=== PATIENT | male | born 1955 | race Caucasian/White ===

== ENCOUNTER 2018-08-30 12:29 | Inpatient (IN) | payer BC | END 2018-09-01 15:59 | disposition home or self-care (01) | LOC: ER 12:29 → ED HOLD 15:59 → SUR 3N 17:20 ==

== ENCOUNTER 2019-04-09 08:59 | Inpatient (IN) | payer BC ==
[~2019-04-09] VITALS: Ht 177.8 cm; Wt 165.9 kg
[~2019-04-09 08:59] MED LIST: ALBU18HF2 IH; BUDE10.22 INH; TAMS0.4C32 PO
--- NOTE | 2019-04-09 09:25 | NUR ---
Dr. Cr at bedside.
[2019-04-09 11:00] LABS: BASOPHILS % (AUTO) 0.3 % (0-1); EOSINOPHILS # (AUTO) 0.4 X10'3 (0-0.9); EOSINOPHILS % (AUTO) 4.5 % (0-6); HEMATOCRIT 34.5 % (42.0-52.0); HEMOGLOBIN 11.9 g/dl (14.0-17.9); LYMPHOCYTES # (AUTO) 1.5 X10'3 (1.1-4.8); LYMPHOCYTES % (AUTO) 16.3 % (21-51); MEAN CORPUSCULAR HEMOGLOBIN 34.4 PG (27.0-31.0); MEAN CORPUSCULAR HGB CONC 34.4 g/dL (33.0-36.5); MEAN CORPUSCULAR VOLUME 99.9 FL (78-98); MEAN PLATELET VOLUME 6.9 FL (7.4-10.4); MONOCYTES # (AUTO) 0.6 X10'3 (0-0.9); MONOCYTES % (AUTO) 7.1 % (2-12); NEUTROPHILS # (AUTO) 6.5 X10'3 (1.8-7.7); NEUTROPHILS % (AUTO) 71.8 % (42-75); PLATELET COUNT 209 X10'3 (140-440); RED BLOOD COUNT 3.46 X10'6 (4.70-6.10); RED CELL DISTRIBUTION WIDTH 14.4 % (11.5-14.5)
[2019-04-09 11:19] LABS: ANION GAP 7 (8-16); BLOOD UREA NITROGEN 26 MG/DL (7-18); BUN/CREATININE RATIO 9.1 (5.4-32.0); CALCIUM 8.2 MG/DL (8.5-10.1); CHLORIDE 109 MMOL/L (99-107); CREATININE 2.85 MG/DL (0.60-1.10); GLUCOSE 83 MG/DL (70-104); POTASSIUM 4.8 MMOL/L (3.5-5.1); SODIUM 144 MMOL/L (135-145); TOTAL CARBON DIOXIDE 27.6 MMOL/L (24-32); eGFR 22 ML/MIN
[2019-04-09 11:20] LABS: ALANINE AMINOTRANSFERASE 25 U/L (12-78); ALBUMIN 3.1 G/DL (3.4-5.0); ALBUMIN/GLOBULIN RATIO 0.7 (1.1-1.5); ALKALINE PHOSPHATASE 83 IU/L (46-116); ASPARTATE AMINO TRANSFERASE 17 U/L (10-37); BILIRUBIN,TOTAL 0.4 MG/DL (0.1-1.0); TOTAL PROTEIN 7.6 G/DL (6.4-8.2)
[2019-04-09 11:26] LABS: MAGNESIUM 2.1 MG/DL (1.5-2.4)
[2019-04-09] MEDS ORDERED: methylPREDNISolone sod succ 125mg/2ml vial IV ONE (11:50)
[2019-04-09] MEDS ORDERED: ipratropium/albuterol 3ml nebule NEB ONE (11:50)
[2019-04-09] MEDS ORDERED: normal saline 1000ML IV soln IVB ONE (11:50)
--- NOTE | 2019-04-09 12:02 | NUR ---
Dr. Iverson at bedside.
[2019-04-09] MEDS ORDERED: magnesium 2GM in 50ml NS 50 ML IV PRN (12:20)
[2019-04-09] MEDS ORDERED: potassium CL 10mEq/100ml bag 100 ML IV PRN ×2 (12:20)
[2019-04-09] MEDS ORDERED: HYDROcodone/acetaminophen 5mg/325mg tablet PO PRN (12:20)
[2019-04-09] MEDS ORDERED: ondansetron/PF 4mg/2ml inj IV PRN (12:20)
[2019-04-09] MEDS ORDERED: HYDROcodone/acetaminophen 10/325mg tab PO PRN (12:20)
[2019-04-09] MEDS ORDERED: acetaminophen 325mg tablet PO PRN ×2 (12:20)
[2019-04-09] MEDS ORDERED: LORazepam 2 mg/ml vial IV PRN (12:20)
[2019-04-09] MEDS ORDERED: magnesium 4gm in 100ml NS 100 ML IV PRN (12:20)
[2019-04-09] MEDS ORDERED: morphine 2 MG/ML inj. syringe IV PRN ×2 (12:20)
[2019-04-09] MEDS ORDERED: potassium Cl 20 mEq SR tablet PO PRN ×2 (12:20)
[2019-04-09] MEDS ORDERED: LORazepam 1 MG tablet PO PRN (12:20)
[2019-04-09] MEDS ORDERED: magnesium Cl slow-release 64mg tablet PO PRN (12:20)
[2019-04-09] MEDS ORDERED: BUDE10.2 PO (12:29)
[2019-04-09] MEDS ORDERED: ALBU17AE26 PO (12:29)
--- NOTE | 2019-04-09 12:50 | NUR ---
ECHO AT BEDSIDE
[2019-04-09] MEDS: guaiFENesin/DM 10ml UD oral syrup PO SCH ×2 (13:55→20:08)
[2019-04-09] MEDS: albuterol 2.5 MG/3 ML nebule NEB SCH ×2 (14:00→20:00)
[2019-04-09] MEDS: normal saline 1000ml 1,000 ML IV SCH ×3 (14:59→22:51)
[2019-04-09 18:00] VITALS: BP 141/70
--- NOTE | 2019-04-09 18:59 | NUR ---
Patient in room [facility] 350. I have received report from Rosalia ENAL and had the opportunity to ask questions and assume patient care. Patient is pleasant and shows no sign of distress.
[2019-04-09] MEDS: heparin, porcine 5000 units/ml vial SQ SCH (20:07)
[2019-04-09] MEDS: docusate sod 100mg capsule PO SCH (20:08)
--- NOTE | 2019-04-09 23:07 | NUR ---
RT notified of the treatment
[2019-04-10] VITALS: BP 150/80
[2019-04-10] MEDS: albuterol 2.5 MG/3 ML nebule NEB SCH ×4 (02:02→23:10)
[2019-04-10] MEDS: guaiFENesin/DM 10ml UD oral syrup PO SCH ×4 (02:21→20:44)
[2019-04-10 06:20] LABS: BASOPHILS % (AUTO) 0 % (0-1); EOSINOPHILS % (AUTO) 0 % (0-6); HEMATOCRIT 32.6 % (42.0-52.0); HEMOGLOBIN 11.1 g/dl (14.0-17.9); LYMPHOCYTES # (AUTO) 0.6 X10'3 (1.1-4.8); LYMPHOCYTES % (AUTO) 4.5 % (21-51); MEAN CORPUSCULAR HEMOGLOBIN 33.9 PG (27.0-31.0); MEAN CORPUSCULAR HGB CONC 33.9 g/dL (33.0-36.5); MEAN CORPUSCULAR VOLUME 99.9 FL (78-98); MEAN PLATELET VOLUME 7.4 FL (7.4-10.4); MONOCYTES # (AUTO) 0.3 X10'3 (0-0.9); MONOCYTES % (AUTO) 2.4 % (2-12); NEUTROPHILS # (AUTO) 12.6 X10'3 (1.8-7.7); NEUTROPHILS % (AUTO) 93.1 % (42-75); PLATELET COUNT 208 X10'3 (140-440); RED BLOOD COUNT 3.26 X10'6 (4.70-6.10); RED CELL DISTRIBUTION WIDTH 13.8 % (11.5-14.5); WHITE BLOOD COUNT 13.5 X10'3 (4.5-11.0)
--- NOTE | 2019-04-10 06:23 | NUR ---
Problems reprioritized. Patient report given, questions answered & plan of care reviewed with amadou NEAL.Patient is having trouble breathing and the day doctor was informed of the situation.
[2019-04-10 06:33] LABS: ALANINE AMINOTRANSFERASE 24 U/L (12-78); ALBUMIN 2.8 G/DL (3.4-5.0); ALBUMIN/GLOBULIN RATIO 0.6 (1.1-1.5); ALKALINE PHOSPHATASE 76 IU/L (46-116); ANION GAP 10 (8-16); ASPARTATE AMINO TRANSFERASE 14 U/L (10-37); BILIRUBIN,TOTAL 0.3 MG/DL (0.1-1.0); BLOOD UREA NITROGEN 29 MG/DL (7-18); BUN/CREATININE RATIO 9.9 (5.4-32.0); CALCIUM 8.2 MG/DL (8.5-10.1); CHLORIDE 107 MMOL/L (99-107); CHOL/HDL RATIO 2.6 (0.00-4.99); CHOLESTEROL 150 MG/DL (0-200); CREATININE 2.93 MG/DL (0.60-1.10); GLUCOSE 219 MG/DL (70-104); HDL CHOLESTEROL 57 MG/DL (35-60); MAGNESIUM 1.9 MG/DL (1.5-2.4); POTASSIUM 4.8 MMOL/L (3.5-5.1); SODIUM 141 MMOL/L (135-145); TOTAL CARBON DIOXIDE 23.7 MMOL/L (24-32); TOTAL PROTEIN 7.2 G/DL (6.4-8.2); TRIGLYCERIDES 48 MG/DL (20-135); eGFR 22 ML/MIN
--- NOTE | 2019-04-10 06:33 | NUR ---
Patient in room MINNA 350. I have received report from VAL Ruiz and had the opportunity to ask questions and assume patient care.
[2019-04-10 06:38] LABS: LDL CHOLESTEROL 87 MG/DL (50-100)
[2019-04-10 07:00] VITALS: BP 140/89
[2019-04-10] MEDS: K and/or MAG REPLACEMENT MC SCH (07:27)
[2019-04-10] MEDS: levoFLOXACIN-Levaquin 500mg/D5 100 ML IV SCH (08:09)
[2019-04-10] MEDS: docusate sod 100mg capsule PO SCH ×2 (08:09→20:44)
[2019-04-10] MEDS: heparin, porcine 5000 units/ml vial SQ SCH ×2 (08:10→20:45)
[2019-04-10 11:00] VITALS: BP 133/69
--- NOTE | 2019-04-10 12:23 | NUR ---
This morning patient was complaining of increasing shortness of breath. Lungs were diminished but otherwise clear. Patient had NS running @125 mL/hr fluids stopped momentarily. Dr. Iverson informed and the rate of the fluids were changed to 100 mL/hr. Patient educated on signs and symptoms of fluid overload so that he can inform primary nurse if these start.
[2019-04-10] MEDS: normal saline 1000ml 1,000 ML IV SCH ×2 (13:31→21:50)
--- NOTE | 2019-04-10 18:21 | NUR ---
Problems reprioritized. Patient report given, questions answered & plan of care reviewed with VAL Joseph.
--- NOTE | 2019-04-10 18:43 | NUR ---
Patient in room MINNA 350. I have received report from Corazon Alcantara and had the opportunity to ask questions and assume patient care. Addendum: 04/10/19 at 1844 by Opal Bridges RN Amended: Links added.
[2019-04-10 19:35] VITALS: BP 155/64
[2019-04-10] MEDS: budesonide 0.5mg/2ml UD nebule IH SCH (19:43)
--- NOTE | 2019-04-10 20:25 | NUR ---
pt awoke took hs meds no complaints of s&s of distress then watching tv.
[2019-04-10] MEDS: methylPREDNISolone sod succ 125mg/2ml vial IV SCH (20:45)
--- NOTE | 2019-04-10 21:15 | NUR ---
sleeping on side with cpap on.
--- NOTE | 2019-04-10 21:56 | NUR ---
pt unable to sleep restlees andf wants to . medicated with po ativan for this,
--- NOTE | 2019-04-10 23:05 | NUR ---
pt resting eyes closed without changes awoke briefly for lead replacement and batteries changed. tolerated well.
[2019-04-11] VITALS: BP 123/56
--- NOTE | 2019-04-11 00:18 | NUR ---
resting without changes.
--- NOTE | 2019-04-11 02:20 | NUR ---
awoke was snoring on right side for cough syrup. pt states cpap machine not staying on needs new parts to be ordered for it.
[2019-04-11] MEDS: guaiFENesin/DM 10ml UD oral syrup PO SCH ×4 (02:32→20:12)
[2019-04-11] MEDS: albuterol 2.5 MG/3 ML nebule NEB SCH ×5 (03:25→19:40)
--- NOTE | 2019-04-11 03:29 | NUR ---
resting without changes.
--- NOTE | 2019-04-11 04:53 | NUR ---
pt right side snoring no distress at this time.
--- NOTE | 2019-04-11 06:04 | NUR ---
Problems reprioritized. Patient report given, questions answered & plan of care reviewed with Corazon Alcantara. Addendum: 04/11/19 at 0605 by Opal Bridges RN Amended: Links added.
--- NOTE | 2019-04-11 06:14 | NUR ---
Patient in room [facility] 350. I have received report from VAL Joseph and had the opportunity to ask questions and assume patient care.
[2019-04-11 06:21] LABS: BASOPHILS % (AUTO) 0 % (0-1); EOSINOPHILS % (AUTO) 0 % (0-6); HEMATOCRIT 34.1 % (42.0-52.0); HEMOGLOBIN 11.6 g/dl (14.0-17.9); LYMPHOCYTES # (AUTO) 0.5 X10'3 (1.1-4.8); LYMPHOCYTES % (AUTO) 3.7 % (21-51); MEAN CORPUSCULAR HEMOGLOBIN 33.9 PG (27.0-31.0); MEAN CORPUSCULAR HGB CONC 33.9 g/dL (33.0-36.5); MEAN PLATELET VOLUME 7.4 FL (7.4-10.4); MONOCYTES # (AUTO) 0.3 X10'3 (0-0.9); MONOCYTES % (AUTO) 2.2 % (2-12); NEUTROPHILS # (AUTO) 13.1 X10'3 (1.8-7.7); NEUTROPHILS % (AUTO) 94.1 % (42-75); PLATELET COUNT 225 X10'3 (140-440); RED BLOOD COUNT 3.41 X10'6 (4.70-6.10); RED CELL DISTRIBUTION WIDTH 14.3 % (11.5-14.5)
[2019-04-11 06:31] LABS: ALANINE AMINOTRANSFERASE 30 U/L (12-78); ALBUMIN/GLOBULIN RATIO 0.7 (1.1-1.5); ALKALINE PHOSPHATASE 72 IU/L (46-116); ANION GAP 8 (8-16); ASPARTATE AMINO TRANSFERASE 17 U/L (10-37); BILIRUBIN,TOTAL 0.3 MG/DL (0.1-1.0); BLOOD UREA NITROGEN 30 MG/DL (7-18); BUN/CREATININE RATIO 11.2 (5.4-32.0); CALCIUM 8.4 MG/DL (8.5-10.1); CHLORIDE 109 MMOL/L (99-107); CREATININE 2.67 MG/DL (0.60-1.10); GLUCOSE 150 MG/DL (70-104); MAGNESIUM 1.9 MG/DL (1.5-2.4); POTASSIUM 5.1 MMOL/L (3.5-5.1); SODIUM 140 MMOL/L (135-145); TOTAL CARBON DIOXIDE 23.4 MMOL/L (24-32); TOTAL PROTEIN 7.5 G/DL (6.4-8.2); eGFR 24 ML/MIN
[2019-04-11] MEDS: budesonide 0.5mg/2ml UD nebule IH SCH ×2 (07:10→19:40)
[2019-04-11 07:43] VITALS: BP 136/69
[2019-04-11] MEDS ORDERED: budesonide 0.5mg/2ml UD nebule IH SCH (08:00)
[2019-04-11] MEDS: K and/or MAG REPLACEMENT MC SCH (08:00)
[2019-04-11] MEDS: levoFLOXACIN-Levaquin 500mg/D5 100 ML IV SCH (08:19)
[2019-04-11] MEDS: docusate sod 100mg capsule PO SCH ×2 (08:21→20:13)
[2019-04-11] MEDS: methylPREDNISolone sod succ 125mg/2ml vial IV SCH ×2 (08:21→20:12)
[2019-04-11] MEDS: normal saline 1000ml 1,000 ML IV SCH ×2 (08:21→22:58)
[2019-04-11] MEDS: heparin, porcine 5000 units/ml vial SQ SCH ×2 (08:22→20:13)
[2019-04-11 11:00] VITALS: BP 139/70
[2019-04-11 18:00] VITALS: BP 141/70
--- NOTE | 2019-04-11 18:34 | NUR ---
Problems reprioritized. Patient report given, questions answered & plan of care reviewed with VAL Joseph.
--- NOTE | 2019-04-11 18:42 | NUR ---
Patient in room [facility] 350. I have received report from DARRIN NEAL and had the opportunity to ask questions and assume patient care. Addendum: 04/11/19 at 1842 by Opal Bridges RN Amended: Links added.
--- NOTE | 2019-04-11 20:10 | NUR ---
pt took hs meds at this time.
--- NOTE | 2019-04-11 22:20 | NUR ---
pt sitting in bed watching tv no complaints at this time.
[2019-04-12] VITALS: BP 170/78
--- NOTE | 2019-04-12 00:25 | NUR ---
PT A/O FINISHED VOIDING IN URINAL. PT UNCOMFORTABLE IN THE BED AND REPOSITIONED TO COMFORT AND GOWN UNTIED IN BACK FOR HIM FOR COMFORT. PT WATCHING TV AND TALKING ABOUT HIS DAUGHTERS SURGERY SHE IS HAVING TOMORROW. SAID HE WAS GOING TO FACE TIME WITH HER.
--- NOTE | 2019-04-12 01:39 | NUR ---
pt positioned to comfort right side eye mask on and urinal emptied.
--- NOTE | 2019-04-12 01:46 | NUR ---
Student documentation: I have reviewed and agree with all interventions, assessments performed and documented by nahomi eugene Rn student.Student Medication Administration: For this medication-pass time frame, all medication were reviewed, dispensed, administered and documented per hospital policy by Nahomi causey Rn student. Addendum: 04/12/19 at 0147 by Opal Bridges RN Amended: Links added.
[2019-04-12] MEDS: guaiFENesin/DM 10ml UD oral syrup PO SCH ×4 (02:18→19:40)
--- NOTE | 2019-04-12 02:32 | NUR ---
pt awoke given his cough syrup and answered pt questions. pt talking on cell phone to his boss.
[2019-04-12] MEDS: albuterol 2.5 MG/3 ML nebule NEB SCH ×7 (03:20→23:48)
[2019-04-12] MEDS: normal saline 1000ml 1,000 ML IV SCH ×3 (05:04→17:33)
--- NOTE | 2019-04-12 06:00 | NUR ---
Patient in room [facility] 350. I have received report from VAL Chandra and had the opportunity to ask questions and assume patient care.
--- NOTE | 2019-04-12 06:05 | NUR ---
Problems reprioritized. Patient report given, questions answered & plan of care reviewed with Corazon Alcantara. Addendum: 04/12/19 at 0605 by Opal Bridges RN Amended: Links added.
--- NOTE | 2019-04-12 06:05 | NUR ---
Patient in room [facility] 350. I have received report from VAL Joseph and had the opportunity to ask questions and assume patient care.
[2019-04-12] MEDS: budesonide 0.5mg/2ml UD nebule IH SCH ×2 (07:20→19:44)
[2019-04-12 07:35] VITALS: BP 114/60
[2019-04-12] MEDS: methylPREDNISolone sod succ 125mg/2ml vial IV SCH ×2 (07:45→19:43)
[2019-04-12] MEDS: docusate sod 100mg capsule PO SCH ×2 (07:54→19:39)
[2019-04-12] MEDS: heparin, porcine 5000 units/ml vial SQ SCH ×2 (07:56→19:42)
[2019-04-12] MEDS: K and/or MAG REPLACEMENT MC SCH (08:00)
--- NOTE | 2019-04-12 09:15 | NUR ---
Student Medication Administration: For this medication-pass time frame, all medication were reviewed, dispensed, administered and documented per hospital policy by [employer] nursing associate.
[2019-04-12 10:13] LABS: BASOPHILS % (AUTO) 0 % (0-1); EOSINOPHILS % (AUTO) 0 % (0-6); HEMATOCRIT 33.4 % (42.0-52.0); HEMOGLOBIN 11.2 g/dl (14.0-17.9); LYMPHOCYTES # (AUTO) 0.8 X10'3 (1.1-4.8); LYMPHOCYTES % (AUTO) 5.2 % (21-51); MEAN CORPUSCULAR HEMOGLOBIN 33.9 PG (27.0-31.0); MEAN CORPUSCULAR HGB CONC 33.5 g/dL (33.0-36.5); MEAN CORPUSCULAR VOLUME 101.1 FL (78-98); MEAN PLATELET VOLUME 7.3 FL (7.4-10.4); MONOCYTES # (AUTO) 0.7 X10'3 (0-0.9); MONOCYTES % (AUTO) 4.9 % (2-12); NEUTROPHILS # (AUTO) 13.3 X10'3 (1.8-7.7); NEUTROPHILS % (AUTO) 89.9 % (42-75); PLATELET COUNT 202 X10'3 (140-440); RED CELL DISTRIBUTION WIDTH 14.6 % (11.5-14.5); WHITE BLOOD COUNT 14.8 X10'3 (4.5-11.0)
[2019-04-12 10:31] LABS: ALANINE AMINOTRANSFERASE 34 U/L (12-78); ALBUMIN/GLOBULIN RATIO 0.7 (1.1-1.5); ALKALINE PHOSPHATASE 69 IU/L (46-116); ANION GAP 6 (8-16); ASPARTATE AMINO TRANSFERASE 19 U/L (10-37); BILIRUBIN,TOTAL 0.2 MG/DL (0.1-1.0); BLOOD UREA NITROGEN 30 MG/DL (7-18); BUN/CREATININE RATIO 11.8 (5.4-32.0); CALCIUM 8.2 MG/DL (8.5-10.1); CHLORIDE 110 MMOL/L (99-107); CREATININE 2.55 MG/DL (0.60-1.10); GLUCOSE 168 MG/DL (70-104); SODIUM 143 MMOL/L (135-145); TOTAL PROTEIN 7.2 G/DL (6.4-8.2); eGFR 26 ML/MIN
[2019-04-12 10:33] LABS: POTASSIUM 4.7 MMOL/L (3.5-5.1)
[2019-04-12] MEDS: levoFLOXACIN 500mg tablet PO SCH (10:42)
[2019-04-12 11:11] VITALS: BP 168/75
[2019-04-12 11:39] VITALS: BP 168/75
--- NOTE | 2019-04-12 11:54 | NUR ---
Problems reprioritized. Patient report given, questions answered & plan of care reviewed with VAL Chandra.
--- NOTE | 2019-04-12 12:00 | NUR ---
Student documentation: I have reviewed and agree with all interventions, assessments performed and documented by [employer], nursing informatics specialist.
[2019-04-12 15:57] LABS: TOTAL PROTEIN,URINE RANDOM 94.6 MG/DL
[2019-04-12 16:20] LABS: CLARITY,URINE CLEAR (Clear); COLOR,URINE STRAW (Yellow); GLUCOSE, URINE 100 mg/dl (Neg); KETONES,URINE NEGATIVE (Neg); LEUKOCYTE ESTERASE ,URINE NEGATIVE (Neg); NITRITES, URINE NEGATIVE (Neg); OCCULT BLOOD,URINE SMALL (Neg); PH,URINE 6.5 (4.8-8.0); PROTEIN,URINE 30 mg/dl (Neg); UROBILINOGEN,URINE 0.2 E.U/dL (0.2-1.0)
[2019-04-12 16:22] LABS: UA COLLECTION TYPE NON-SPECIFIED
[2019-04-12 16:27] LABS: COARSE GRANULAR CAST 0-3 /LPF (NEGATIVE); MUCUS STRANDS FEW /LPF (Neg); SQUAMOUS EPITHELIAL CELL,UR FEW /LPF (FEW); TRANSITIONAL EPI CELLS,URINE FEW /HPF
[2019-04-12 16:28] LABS: BACTERIA,URINE NONE SEEN /HPF (Neg); RBC,URINE 0-2 /HPF (0-2); WBC,URINE 0-4 /HPF (0-4)
--- NOTE | 2019-04-12 17:41 | NUR ---
Student documentation: I have reviewed and agree with all interventions, assessments performed and documented by Audrey Sanchez.
[2019-04-12 18:00] VITALS: BP 124/64
[2019-04-12 18:05] LABS: UA EOSINOPHILS NO EOS /HPF
--- NOTE | 2019-04-12 18:15 | NUR ---
Problems reprioritized. Patient report given, questions answered & plan of care reviewed with VAL Sheriff.
--- NOTE | 2019-04-12 18:16 | NUR ---
Patient in room [facility] 350. I have received report from VAL Chandra, and foreign student adviser Audrey. and had the opportunity to ask questions and assume patient care.
[2019-04-12] MEDS: lactobacillus rhamnosus 10,000 MMU CELLS/CAPSULE PO SCH (19:39)
[2019-04-12 21:28] VITALS: BP 124/64
[2019-04-13 00:14] VITALS: BP 124/64
[2019-04-13] MEDS: guaiFENesin/DM 10ml UD oral syrup PO SCH ×3 (01:44→14:00)
[2019-04-13] MEDS: normal saline 1000ml 1,000 ML IV SCH (03:17)
[2019-04-13] MEDS: albuterol 2.5 MG/3 ML nebule NEB SCH ×3 (03:31→10:13)
--- NOTE | 2019-04-13 06:21 | NUR ---
Patient in room [facility] 350. I have received report from VAL Sheriff and had the opportunity to ask questions and assume patient care.
--- NOTE | 2019-04-13 06:36 | NUR ---
Problems reprioritized. Patient report given, questions answered & plan of care reviewed with VAL Chandra.
--- NOTE | 2019-04-13 06:46 | NUR ---
Patient in room [facility] 350. I have received report from VAL Chandra and had the opportunity to ask questions and assume patient care.
[2019-04-13] MEDS: K and/or MAG REPLACEMENT MC SCH (07:00)
[2019-04-13 07:19] VITALS: BP 108/63
[2019-04-13] MEDS: budesonide 0.5mg/2ml UD nebule IH SCH (07:54)
[2019-04-13] MEDS: docusate sod 100mg capsule PO SCH (09:32)
[2019-04-13] MEDS: lactobacillus rhamnosus 10,000 MMU CELLS/CAPSULE PO SCH (09:32)
[2019-04-13] MEDS: heparin, porcine 5000 units/ml vial SQ SCH (09:33)
[2019-04-13] MEDS: methylPREDNISolone sod succ 125mg/2ml vial IV SCH (09:35)
[2019-04-13 10:47] LABS: HEMOGLOBIN A1C 5.5 % (4.5-6.2)
[2019-04-13 11:00] VITALS: BP 146/66
[2019-04-13] MEDS: levoFLOXACIN 500mg tablet PO SCH (11:47)
--- NOTE | 2019-04-13 11:57 | NUR ---
Problems reprioritized. Patient report given, questions answered & plan of care reviewed with VAL Chandra.
--- NOTE | 2019-04-13 12:13 | NUR ---
Student Medication Administration: For this medication-pass time frame, all medication were reviewed, dispensed, administered and documented per hospital policy by [employer] deputy director of nursing. Addendum: 04/13/19 at 1219 by Rin Guerra INSTRUCTOR RN Student Medication Administration: For this medication-pass time frame, all medication were reviewed, dispensed, administered and documented per hospital policy by ayaz Kasper.
--- NOTE | 2019-04-13 12:15 | NUR ---
Student documentation: I have reviewed and agree with all interventions, assessments performed and documented by [facility] manager nursing home. Addendum: 04/13/19 at 1218 by Rin Guerra INSTRUCTOR VAL Student documentation: I have reviewed and agree with all interventions, assessments performed and documented by ayaz Kasper student. Addendum: 04/13/19 at 1219 by Rin OROZCO RN Student documentation: I have reviewed and agree with all interventions, assessments performed and documented by ayaz Kasper student.
[2019-04-13] MEDS ORDERED: PRED20TA PO (12:52)
[2019-04-13] MEDS ORDERED: LEVO250T58 PO (12:52)
--- NOTE | 2019-04-13 15:12 | NUR ---
reviewed student nurse charting
--- NOTE | 2019-04-13 15:20 | NUR ---
Patient discharge home via son and taken from unit via wheelchair with x1 staff. Patient alert, oriented and in no apparent distress at time of discharge. PIV removed with cannula intact, tele monitor removed, and tele chambers notified. Discharge instructions were discussed and patient was given time for questions and answers. Much of the discussion was about using his IS and why it is important. Patient stated an understanding of all discharge instructions and even demonstrated how to use the IS effectively. Patient new prescriptions were sent to [facility] per patient request.
[2019-04-14] MEDS ORDERED: levoFLOXACIN 250mg tablet PO SCH (11:00)
== END 2019-04-13 15:27 | disposition home or self-care (01) | DRG 683 ==
LOC: ER 09:00 → EDBEDREQTM 12:45 → ED HOLD 13:13 → EDBEDREQ 15:14 → SUR 3N 16:36 → UNDODISIN 04-11 12:00
PROVIDERS: ADMIT Internal Medicine; ATTEND Family Medicine
DX: N17.9 Acute kidney failure, unspecified (principal); J44.1 Chronic obstructive pulmonary disease with (acute) exacerbation; G47.33 Obstructive sleep apnea (adult) (pediatric); D64.9 Anemia, unspecified; N18.3 Chronic kidney disease, stage 3 (moderate); Z79.51 Long term (current) use of inhaled steroids; Z87.891 Personal history of nicotine dependence; Z88.0 Allergy status to penicillin; Z72.89 Other problems related to lifestyle
CPT/HCPCS: 36415; 71045; 76775; 80053; 80061; 81001; 82570; 82948; 83036; 83605; 83735; 83880; 83935; 84133; 84145; 84156; 84300; 84443; 84484; 85025; 87040; 87081; 87207; 93005; 93306; 94640; 94760; 97116; 97161; 99285; G0378; J1644; J1956; J2930; J7030; J7626

== ENCOUNTER 2020-11-25 15:07 | Inpatient (IN) | payer BC ==
[~2020-11-25] VITALS: Ht 180.3 cm; Wt 164.1 kg
[2020-11-25] VITALS (15 sets, daily range): BP systolic 91–123; BP diastolic 47–66
[~2020-11-25 15:07] MED LIST changes: +ALBU17AE26 PO; -ALBU18HF2 IH; +BUDE10.2 PO; -BUDE10.22 INH; +LEVO250T58 PO; -TAMS0.4C32 PO
[2020-11-25 15:35] LABS: BASOPHILS % (AUTO) 0.1 % (0-1); EOSINOPHILS % (AUTO) 0.1 % (0-6); HEMATOCRIT 34.4 % (42.0-52.0); HEMOGLOBIN 11.6 g/dl (14.0-17.9); LYMPHOCYTES # (AUTO) 1.4 X10'3 (1.1-4.8); LYMPHOCYTES % (AUTO) 6.3 % (21-51); MEAN CORPUSCULAR HEMOGLOBIN 32.4 PG (27.0-31.0); MEAN CORPUSCULAR HGB CONC 33.6 g/dL (33.0-36.5); MEAN CORPUSCULAR VOLUME 96.5 FL (78-98); MEAN PLATELET VOLUME 7.6 FL (7.4-10.4); MONOCYTES # (AUTO) 1.3 X10'3 (0-0.9); MONOCYTES % (AUTO) 5.9 % (2-12); NEUTROPHILS % (AUTO) 87.6 % (42-75); PLATELET COUNT 200 X10'3 (140-440); RED BLOOD COUNT 3.56 X10'6 (4.70-6.10); RED CELL DISTRIBUTION WIDTH 12.7 % (11.5-14.5); WHITE BLOOD COUNT 21.7 X10'3 (4.5-11.0)
[2020-11-25] MEDS ORDERED: normal saline 1000ML IV soln IV ONE (15:45)
[2020-11-25 15:50] LABS: PARTIAL THROMBOPLASTIN TIME 29 SECONDS (22-32)
[2020-11-25 15:52] LABS: ALANINE AMINOTRANSFERASE 23 U/L (12-78); ALBUMIN 2.9 G/DL (3.4-5.0); ALBUMIN/GLOBULIN RATIO 0.7 (1.1-1.5); ALKALINE PHOSPHATASE 76 IU/L (46-116); ANION GAP 13 (8-16); ASPARTATE AMINO TRANSFERASE 22 U/L (10-37); BILIRUBIN,TOTAL 0.7 MG/DL (0.1-1.0); BLOOD UREA NITROGEN 64 MG/DL (7-18); CALCIUM 8.6 MG/DL (8.5-10.1); CHLORIDE 100 MMOL/L (99-107); CREATININE 6.41 MG/DL (0.60-1.10); GLUCOSE 99 MG/DL (70-104); POTASSIUM 4.3 MMOL/L (3.5-5.1); SODIUM 135 MMOL/L (135-145); TOTAL CARBON DIOXIDE 21.8 MMOL/L (24-32); TOTAL CELLS COUNTED 100; TOTAL PROTEIN 7.1 G/DL (6.4-8.2); eGFR 9 ML/MIN
[2020-11-25 15:53] LABS: HYPERSEGMENTED NEUTROPHILS FEW; PLATELET ESTIMATE NORMAL
[2020-11-25] MEDS ORDERED: pantoprazole IV 80 MG in normal saline 100ml IV soln 100 ML IV ONE (16:00)
[2020-11-25] MEDS ORDERED: pantoprazole 40 MG vial IV ONE (16:07)
--- NOTE | 2020-11-25 16:09 | NUR ---
NS BOLUS CHANGED FROM 2.5L TO 1L DUE TO GFR
--- NOTE | 2020-11-25 16:34 | NUR ---
BACK FROM CT SCAN
[2020-11-25] MEDS ORDERED: levoFLOXACIN-Levaquin 750MG/D5 150 ML IV ONE (17:00)
[2020-11-25] MEDS ORDERED: metroNIDAZOLE-Flagyl 500mg/NS 100 ML IV ONE (17:00)
[2020-11-25 17:13] LABS: CLARITY,URINE SLIGHTLY CLOUDY (Clear); COLOR,URINE YELLOW (Yellow); GLUCOSE, URINE NEGATIVE (Neg); KETONES,URINE NEGATIVE (Neg); LEUKOCYTE ESTERASE ,URINE NEGATIVE (Neg); NITRITES, URINE NEGATIVE (Neg); OCCULT BLOOD,URINE MODERATE (Neg); PH,URINE 5.5 (4.8-8.0); PROTEIN,URINE 100 mg/dl (Neg)
[2020-11-25 17:17] LABS: UA COLLECTION TYPE CLN CATCH MIDSTREAM
[2020-11-25 17:20] LABS: AMORPHOUS URATES 1+; BACTERIA,URINE FEW /HPF (Neg); MUCUS STRANDS FEW /LPF (Neg); SQUAMOUS EPITHELIAL CELL,UR FEW /LPF (FEW); WBC,URINE 0-4 /HPF (0-4)
[2020-11-25] MEDS ORDERED: acetaminophen 325mg tablet PO PRN (17:20)
[2020-11-25] MEDS ORDERED: mag hydrox/Alum hydrox/simeth 30ml oral suspension PO PRN (17:20)
[2020-11-25] MEDS ORDERED: morphine 2 MG/ML inj. syringe IV PRN ×2 (17:20→17:45)
[2020-11-25] MEDS ORDERED: magnesium hydroxide 30ml (MOM) UD suspension PO PRN (17:20)
[2020-11-25] MEDS: normal saline 1000ml 1,000 ML IV SCH (17:32)
[2020-11-25] MEDS: morphine 2 MG/ML inj. syringe IV PRN (17:43)
[2020-11-25] MEDS: ondansetron/PF 4mg/2ml inj IV PRN (17:43)
[2020-11-25] MEDS ORDERED: morphine 4 MG/ML inj SYRINge IV PRN (17:45)
[2020-11-25] MEDS ORDERED: fentaNYL/PF 50MCG/1 ML 2ML syringe IV PRN ×2 (17:45)
[2020-11-25] MEDS ORDERED: ringers solution, lacted 1,000 ML IV SCH (17:45)
[2020-11-25] MEDS ORDERED: enalaprilat dihydrate 2.5mg/2ml vial IV PRN (17:45)
[2020-11-25] MEDS ORDERED: ondansetron/PF 4mg/2ml inj IV PRN (17:45)
[2020-11-25] MEDS ORDERED: labetalol 20mg/4ml (5mg/ml) syringe IV PRN (17:45)
[2020-11-25] MEDS ORDERED: FLO0.4C PO (17:52)
[2020-11-25] MEDS ORDERED: ERGO500054 PO (17:52)
[2020-11-25] MEDS ORDERED: ALBU8HFA IH (17:52)
[2020-11-25] MEDS ORDERED: BUDE10.26 PO (17:52)
[2020-11-25] MEDS ORDERED: LOSA1TAB36 PO (17:52)
--- NOTE | 2020-11-25 18:01 | NUR ---
or called stated will pick up attendant in 15 min
[2020-11-25] MEDS ORDERED: BUPIVAcaine/PF 2.5 mg/ml (0.25%) 30ml vial ONE (18:06)
[2020-11-25] MEDS ORDERED: LIDOcaine 1% 30ml preserv. free vial ONE (18:06)
[2020-11-25] MEDS ORDERED: albuterol 2.5 MG/3 ML nebule NEB PRN (18:15)
[2020-11-25] MEDS ORDERED: etomidate 2mg/ml inj. ONE ×2 (18:15)
[2020-11-25] MEDS ORDERED: fentaNYL/PF 50MCG/1 ML 2ML syringe ONE ×2 (18:17→20:27)
[2020-11-25] MEDS ORDERED: ondansetron/PF 4mg/2ml inj ONE (18:17)
[2020-11-25] MEDS ORDERED: dexamethasone sod phosphate 4mg/ml inj. ONE (18:17)
[2020-11-25] MEDS ORDERED: midazolam 1 mg/ML 2ml injection ONE (18:18)
[2020-11-25] MEDS ORDERED: sugammadex 200mg/2ml injection IV ONE (18:20)
[2020-11-25] MEDS ORDERED: propofol 10mg/ml 20ml vial IV ONE (18:40)
[2020-11-25] MEDS ORDERED: sevoflurane 250ml liquid IH ONE (18:40)
[2020-11-25] MEDS ORDERED: albumin (Human) 5% 250ml 250 ML IV ONE (18:51)
[2020-11-25] MEDS ORDERED: labetalol 20mg/4ml (5mg/ml) syringe IV ONE (19:06)
[2020-11-25] MEDS ORDERED: non-formulary drug (Budesonide/Formoterol Fumarate (Budesonide-Formoterol 160-4.5) 2 PUFFS PO SCH (20:00)
[2020-11-25] MEDS ORDERED: rocuronium 10mg/ml inj IV ONE ×2 (20:26)
[2020-11-25] MEDS ORDERED: naloxone 0.4 mg/ml inj IV PRN (20:55)
--- NOTE | 2020-11-25 20:57 | NUR ---
Received from OR via BED, accompanied by Anesthesiologist DR LEGGETT and report given by Anesthesiologist. PT DROWSY, ABDOMEN W/4 LAP SITES W/BANDAIDS CDI, RAUDEL TO BULB SX W/SMALL AMT OF S/S DRAINAGE. Addendum: 11/25/20 at 2113 by Indigo Bates RN Amended: Links added.
[2020-11-25] MEDS: budesonide 0.5mg/2ml UD nebule IH SCH (21:00)
[2020-11-25] MEDS: HYDROmorph./NS 0.2 mg/ml CADD 100 ML IV SCH ×3 (21:00→23:00)
[2020-11-25] MEDS: albuterol 2.5 MG/3 ML nebule NEB SCH (21:00)
--- NOTE | 2020-11-25 22:17 | NUR ---
Report called to receiving nurse. Transferred via BED, 2 BAGS OF PERSONAL Belongings, CELL PHONE, [place], PT STATES NO [place]RIA OR CC IN [place], WILL HAVE HIS SON TAKE HOME. BLL, CALL LIGHT GIVEN, SIDE RAILS UP X 2, RECEIVING RN AT BEDSIDE TO RECEIVE PT. Special Issues communicated to receiving nurse. YES. Addendum: 11/25/20 at 2227 by Indigo Bates RN Amended: Links added.
--- NOTE | 2020-11-25 22:17 | NUR ---
Patient in room ED 7. I have received report from VAL Sood and had the opportunity to ask questions and assume patient care.
--- NOTE | 2020-11-25 23:40 | NUR ---
Patient admitted to tele from OR, patient had an order of Levaquin at 1700 in ER called pharmacy to verify if dose was given it was not documented but pulled. Called MD Mcleod to inform antibiotic of Levaquin 750 mg was never documented that it was give he telephone ordered a one time 1 gm Rocephin IV now
[2020-11-25] MEDS ORDERED: CefTRIAXone/D5W-Rocephin 1gm 50 ML IV ONE (23:55)
[2020-11-26] VITALS (9 sets, daily range): BP systolic 93–135; BP diastolic 38–65
[2020-11-26] MEDS: HYDROmorph./NS 0.2 mg/ml CADD 100 ML IV SCH ×12 (01:00→23:00)
[2020-11-26] MEDS: albuterol 2.5 MG/3 ML nebule NEB SCH ×4 (02:18→20:07)
[2020-11-26] MEDS: normal saline 1000ml 1,000 ML IV SCH ×2 (03:20→14:44)
[2020-11-26] MEDS: ondansetron/PF 4mg/2ml inj IV PRN (06:12)
[2020-11-26 06:22] LABS: BASOPHILS % (AUTO) 0 % (0-1); EOSINOPHILS % (AUTO) 0 % (0-6); HEMATOCRIT 30.4 % (42.0-52.0); HEMOGLOBIN 10.3 g/dl (14.0-17.9); LYMPHOCYTES # (AUTO) 0.4 X10'3 (1.1-4.8); LYMPHOCYTES % (AUTO) 1.9 % (21-51); MEAN CORPUSCULAR HEMOGLOBIN 32.8 PG (27.0-31.0); MEAN CORPUSCULAR HGB CONC 33.9 g/dL (33.0-36.5); MEAN PLATELET VOLUME 7.6 FL (7.4-10.4); MONOCYTES # (AUTO) 0.7 X10'3 (0-0.9); MONOCYTES % (AUTO) 3.7 % (2-12); NEUTROPHILS # (AUTO) 17.6 X10'3 (1.8-7.7); NEUTROPHILS % (AUTO) 94.4 % (42-75); PLATELET COUNT 175 X10'3 (140-440); RED BLOOD COUNT 3.14 X10'6 (4.70-6.10); RED CELL DISTRIBUTION WIDTH 12.7 % (11.5-14.5); WHITE BLOOD COUNT 18.7 X10'3 (4.5-11.0)
[2020-11-26 06:35] LABS: ALBUMIN 2.6 G/DL (3.4-5.0); ANION GAP 13 (8-16); BLOOD UREA NITROGEN 70 MG/DL (7-18); BUN/CREATININE RATIO 10.6 (5.4-32.0); CHLORIDE 105 MMOL/L (99-107); CREATININE 6.58 MG/DL (0.60-1.10); GLUCOSE 177 MG/DL (70-104); POTASSIUM 5.2 MMOL/L (3.5-5.1); SODIUM 136 MMOL/L (135-145); TOTAL CARBON DIOXIDE 18.1 MMOL/L (24-32); eGFR 9 ML/MIN
--- NOTE | 2020-11-26 06:39 | NUR ---
Problems reprioritized. Patient report given, questions answered & plan of care reviewed with VAL Espinoza.
[2020-11-26] MEDS: budesonide 0.5mg/2ml UD nebule IH SCH ×2 (07:42→20:07)
[2020-11-26] MEDS ORDERED: losartan 50mg tablet PO SCH (08:00)
[2020-11-26] MEDS ORDERED: non-formulary drug (Losartan/Hydrochlorothiazide (Losartan-Hctz 50-12.5 Mg Tab) 1 TAB) PO SCH (08:00)
[2020-11-26] MEDS ORDERED: HYDROchlorothiazide 12.5mg capsule PO SCH (08:00)
[2020-11-26] MEDS: ciprofloxacin lact 400MG/200ML 200 ML IV SCH ×2 (08:34→20:54)
[2020-11-26] MEDS: heparin, porcine 5000 units/ml vial SQ SCH ×2 (09:02→20:54)
[2020-11-26] MEDS: tamsulosin 0.4mg capsule PO SCH (09:03)
--- NOTE | 2020-11-26 09:15 | NUR ---
Noted pt with a low BMI of 14.6 using bed scaled wt of 47.5 kg. Per H&P pt appears morbidly obese and well developed well nourished per ED report. Pt with a stated wt of 165.9 kg in March 2019 per EMR. Pt denied wt loss in malnutrition risk screen with RN this admit. Current wt is likely a documentation error. Addendum: 11/26/20 at [address] Amended: Links added.
[2020-11-26] MEDS: metroNIDAZOLE-Flagyl 500mg/NS 100 ML IV SCH ×2 (10:32→16:26)
--- NOTE | 2020-11-26 14:24 | NUR ---
Pt walked around 100 feet and with standing his level of O2 saturation dropped from 96 to 90 %. but he could tolerate well the activity with no pain.
[2020-11-26 15:30] LABS: MAGNESIUM 1.9 MG/DL (1.5-2.4)
--- NOTE | 2020-11-26 18:06 | NUR ---
Problems reprioritized. Patient report given, questions answered & plan of care reviewed with VAL Schafer.
[2020-11-27] MEDS: normal saline 1000ml 1,000 ML IV SCH (00:11)
[2020-11-27] MEDS: HYDROmorph./NS 0.2 mg/ml CADD 100 ML IV SCH ×12 (01:00→23:00)
[2020-11-27 03:00] VITALS: BP 111/56
[2020-11-27] MEDS: albuterol 2.5 MG/3 ML nebule NEB SCH ×4 (03:51→21:09)
[2020-11-27 06:00] VITALS: BP 135/63
--- NOTE | 2020-11-27 06:36 | NUR ---
Patient in room PCU 3015. I have received report from fab muñoz and had the opportunity to ask questions and assume patient care.
[2020-11-27] MEDS: budesonide 0.5mg/2ml UD nebule IH SCH ×2 (07:12→21:09)
[2020-11-27 07:17] LABS: BASOPHILS % (AUTO) 0 % (0-1); EOSINOPHILS % (AUTO) 0 % (0-6); HEMATOCRIT 30.3 % (42.0-52.0); HEMOGLOBIN 10.1 g/dl (14.0-17.9); LYMPHOCYTES # (AUTO) 0.5 X10'3 (1.1-4.8); LYMPHOCYTES % (AUTO) 2.9 % (21-51); MEAN CORPUSCULAR HEMOGLOBIN 32.6 PG (27.0-31.0); MEAN CORPUSCULAR HGB CONC 33.2 g/dL (33.0-36.5); MEAN CORPUSCULAR VOLUME 98.3 FL (78-98); MONOCYTES # (AUTO) 0.9 X10'3 (0-0.9); MONOCYTES % (AUTO) 5.1 % (2-12); NEUTROPHILS # (AUTO) 15.9 X10'3 (1.8-7.7); PLATELET COUNT 170 X10'3 (140-440); RED BLOOD COUNT 3.08 X10'6 (4.70-6.10); RED CELL DISTRIBUTION WIDTH 13.1 % (11.5-14.5); WHITE BLOOD COUNT 17.2 X10'3 (4.5-11.0)
[2020-11-27 07:23] LABS: ALBUMIN 2.4 G/DL (3.4-5.0); ANION GAP 13 (8-16); BLOOD UREA NITROGEN 78 MG/DL (7-18); BUN/CREATININE RATIO 11.2 (5.4-32.0); CALCIUM 7.9 MG/DL (8.5-10.1); CHLORIDE 106 MMOL/L (99-107); CREATININE 6.98 MG/DL (0.60-1.10); GLUCOSE 106 MG/DL (70-104); POTASSIUM 4.7 MMOL/L (3.5-5.1); SODIUM 137 MMOL/L (135-145); TOTAL CARBON DIOXIDE 17.9 MMOL/L (24-32); eGFR 8 ML/MIN
[2020-11-27] MEDS: metroNIDAZOLE-Flagyl 500mg/NS 100 ML IV SCH ×4 (08:00→23:31)
[2020-11-27] MEDS: tamsulosin 0.4mg capsule PO SCH (09:18)
[2020-11-27] MEDS: heparin, porcine 5000 units/ml vial SQ SCH ×2 (09:20→20:00)
[2020-11-27 11:00] VITALS: BP 118/62
[2020-11-27] MEDS: ciprofloxacin lact 400MG/200ML 200 ML IV SCH ×2 (13:32→20:00)
[2020-11-27 15:00] VITALS: BP 103/53
[2020-11-27] MEDS ORDERED: potassium CL 20mEq in D5-1/2NS 1,000 ML IV SCH (17:30)
--- NOTE | 2020-11-27 18:19 | NUR ---
Problems reprioritized. Patient report given, questions answered & plan of care reviewed with fab muñoz .
[2020-11-27 19:00] VITALS: BP 96/48
[2020-11-27 23:00] VITALS: BP 103/53
[2020-11-28] MEDS: HYDROmorph./NS 0.2 mg/ml CADD 100 ML IV SCH ×11 (01:00→23:00)
[2020-11-28] MEDS: albuterol 2.5 MG/3 ML nebule NEB SCH ×5 (02:47→21:23)
[2020-11-28 03:00] VITALS: BP 112/47
[2020-11-28 06:00] VITALS: BP 106/47
--- NOTE | 2020-11-28 06:18 | NUR ---
Patient in room PCU 3015. I have received report from fab muñoz and had the opportunity to ask questions and assume patient care.
[2020-11-28 06:21] LABS: BASOPHILS % (AUTO) 0.1 % (0-1); EOSINOPHILS % (AUTO) 0.2 % (0-6); HEMATOCRIT 32.6 % (42.0-52.0); HEMOGLOBIN 10.8 g/dl (14.0-17.9); LYMPHOCYTES # (AUTO) 0.9 X10'3 (1.1-4.8); LYMPHOCYTES % (AUTO) 7.9 % (21-51); MEAN CORPUSCULAR HEMOGLOBIN 32.6 PG (27.0-31.0); MEAN CORPUSCULAR HGB CONC 33.1 g/dL (33.0-36.5); MEAN CORPUSCULAR VOLUME 98.4 FL (78-98); MEAN PLATELET VOLUME 7.9 FL (7.4-10.4); MONOCYTES # (AUTO) 0.9 X10'3 (0-0.9); MONOCYTES % (AUTO) 7.6 % (2-12); NEUTROPHILS # (AUTO) 9.5 X10'3 (1.8-7.7); NEUTROPHILS % (AUTO) 84.2 % (42-75); PLATELET COUNT 170 X10'3 (140-440); RED BLOOD COUNT 3.31 X10'6 (4.70-6.10); RED CELL DISTRIBUTION WIDTH 13.4 % (11.5-14.5); WHITE BLOOD COUNT 11.2 X10'3 (4.5-11.0)
[2020-11-28 06:30] LABS: ALBUMIN 2.5 G/DL (3.4-5.0); ANION GAP 13 (8-16); BLOOD UREA NITROGEN 88 MG/DL (7-18); BUN/CREATININE RATIO 11.8 (5.4-32.0); CHLORIDE 107 MMOL/L (99-107); CREATININE 7.44 MG/DL (0.60-1.10); GLUCOSE 93 MG/DL (70-104); POTASSIUM 4.6 MMOL/L (3.5-5.1); SODIUM 139 MMOL/L (135-145); TOTAL CARBON DIOXIDE 19.5 MMOL/L (24-32); eGFR 7 ML/MIN
[2020-11-28] MEDS: ciprofloxacin lact 400MG/200ML 200 ML IV SCH ×2 (08:00→20:33)
[2020-11-28] MEDS: metroNIDAZOLE-Flagyl 500mg/NS 100 ML IV SCH ×3 (08:38→23:53)
[2020-11-28] MEDS: tamsulosin 0.4mg capsule PO SCH (08:39)
[2020-11-28] MEDS: heparin, porcine 5000 units/ml vial SQ SCH ×2 (08:39→20:33)
[2020-11-28] MEDS: budesonide 0.5mg/2ml UD nebule IH SCH ×2 (08:55→21:23)
[2020-11-28 11:00] VITALS: BP 114/49
[2020-11-28 12:05] LABS: CLARITY,URINE CLOUDY (Clear); COLOR,URINE YELLOW (Yellow); GLUCOSE, URINE NEGATIVE (Neg); KETONES,URINE NEGATIVE (Neg); LEUKOCYTE ESTERASE ,URINE NEGATIVE (Neg); NITRITES, URINE NEGATIVE (Neg); OCCULT BLOOD,URINE SMALL (Neg); PH,URINE 5.5 (4.8-8.0); PROTEIN,URINE 30 mg/dl (Neg); UROBILINOGEN,URINE 0.2 E.U/dL (0.2-1.0)
[2020-11-28 12:08] LABS: TOTAL PROTEIN,URINE RANDOM 107.4 MG/DL
[2020-11-28 12:13] LABS: UA COLLECTION TYPE VOIDED
[2020-11-28 12:14] LABS: SQUAMOUS EPITHELIAL CELL,UR FEW /LPF (FEW)
[2020-11-28 12:15] LABS: RBC,URINE 0-2 /HPF (0-2); WBC,URINE 0-4 /HPF (0-4)
[2020-11-28 12:16] LABS: AMORPHOUS URATES 3+; BACTERIA,URINE FEW /HPF (Neg)
[2020-11-28 13:00] LABS: YEAST FEW /HPF (NEGATIVE)
[2020-11-28 13:03] LABS: UA EOSINOPHILS NO EOS /HPF
[2020-11-28] MEDS ORDERED: dextrose 5%-normal saline 1,000 ML IV SCH (14:10)
[2020-11-28] MEDS: dextrose 5%-1/2 normal saline 1,000 ML IV SCH (14:20)
[2020-11-28 15:00] VITALS: BP 97/50
--- NOTE | 2020-11-28 17:09 | NUR ---
Attempted to place in the cephalic vein an extended PIV using ultra sound unsuccessful. 20g PIV was insert slightly medial to the first two insertion sites without incident. Tolerated well. Maricruz Espinoza notified. Addendum: 11/28/20 at 1713 by Eli Monroe RN Amended: Links added.
[2020-11-28 18:00] VITALS: BP 104/54
--- NOTE | 2020-11-28 18:26 | NUR ---
Problems reprioritized. Patient report given, questions answered & plan of care reviewed with fab jones.
--- NOTE | 2020-11-28 18:30 | NUR ---
Patient in room PCU 3017. I have received report from Olga NEAL and had the opportunity to ask questions and assume patient care.
[2020-11-28] MEDS: lactobacillus rhamnosus 10,000 MMU CELLS/CAPSULE PO SCH (20:31)
[2020-11-28 22:00] VITALS: BP 100/53
[2020-11-29] MEDS: HYDROmorph./NS 0.2 mg/ml CADD 100 ML IV SCH ×12 (01:00→23:00)
[2020-11-29] MEDS: normal saline 1000ml 1,000 ML IV SCH ×2 (01:40→14:35)
[2020-11-29 02:00] VITALS: BP 107/57
[2020-11-29] MEDS: albuterol 2.5 MG/3 ML nebule NEB SCH ×4 (02:27→20:59)
[2020-11-29 06:00] VITALS: BP 104/51
--- NOTE | 2020-11-29 06:17 | NUR ---
Problems reprioritized. Patient report given, questions answered & plan of care reviewed with Chirag NEAL.
[2020-11-29] MEDS: metroNIDAZOLE-Flagyl 500mg/NS 100 ML IV SCH ×3 (07:56→23:58)
[2020-11-29] MEDS: lactobacillus rhamnosus 10,000 MMU CELLS/CAPSULE PO SCH ×2 (07:56→20:14)
[2020-11-29] MEDS: tamsulosin 0.4mg capsule PO SCH (07:56)
[2020-11-29] MEDS: ciprofloxacin lact 400MG/200ML 200 ML IV SCH ×2 (07:56→20:14)
[2020-11-29] MEDS: heparin, porcine 5000 units/ml vial SQ SCH ×2 (07:57→20:14)
[2020-11-29 09:22] LABS: BASOPHILS % (AUTO) 0.2 % (0-1); EOSINOPHILS # (AUTO) 0.1 X10'3 (0-0.9); EOSINOPHILS % (AUTO) 0.8 % (0-6); HEMATOCRIT 29.3 % (42.0-52.0); HEMOGLOBIN 9.6 g/dl (14.0-17.9); LYMPHOCYTES # (AUTO) 0.9 X10'3 (1.1-4.8); LYMPHOCYTES % (AUTO) 7.9 % (21-51); MEAN CORPUSCULAR HEMOGLOBIN 32.2 PG (27.0-31.0); MEAN CORPUSCULAR HGB CONC 32.7 g/dL (33.0-36.5); MEAN CORPUSCULAR VOLUME 98.6 FL (78-98); MEAN PLATELET VOLUME 7.6 FL (7.4-10.4); MONOCYTES # (AUTO) 0.8 X10'3 (0-0.9); MONOCYTES % (AUTO) 7.2 % (2-12); NEUTROPHILS # (AUTO) 9.3 X10'3 (1.8-7.7); NEUTROPHILS % (AUTO) 83.9 % (42-75); PLATELET COUNT 147 X10'3 (140-440); RED BLOOD COUNT 2.97 X10'6 (4.70-6.10); RED CELL DISTRIBUTION WIDTH 13.3 % (11.5-14.5); WHITE BLOOD COUNT 11.1 X10'3 (4.5-11.0)
[2020-11-29] MEDS: budesonide 0.5mg/2ml UD nebule IH SCH ×2 (09:29→20:59)
[2020-11-29 09:37] LABS: ALANINE AMINOTRANSFERASE 40 U/L (12-78); ALBUMIN 2.4 G/DL (3.4-5.0); ALBUMIN/GLOBULIN RATIO 0.7 (1.1-1.5); ALKALINE PHOSPHATASE 73 IU/L (46-116); ANION GAP 12 (8-16); ASPARTATE AMINO TRANSFERASE 36 U/L (10-37); BILIRUBIN,TOTAL 0.5 MG/DL (0.1-1.0); BLOOD UREA NITROGEN 85 MG/DL (7-18); BUN/CREATININE RATIO 11.3 (5.4-32.0); CALCIUM 8.2 MG/DL (8.5-10.1); CHLORIDE 108 MMOL/L (99-107); CREATININE 7.53 MG/DL (0.60-1.10); GLUCOSE 118 MG/DL (70-104); MAGNESIUM 1.8 MG/DL (1.5-2.4); PHOSPHORUS 5.2 MG/DL (2.3-4.5); POTASSIUM 4.9 MMOL/L (3.5-5.1); SODIUM 137 MMOL/L (135-145); TOTAL CARBON DIOXIDE 17.1 MMOL/L (24-32); TOTAL PROTEIN 5.9 G/DL (6.4-8.2); eGFR 7 ML/MIN
[2020-11-29 09:42] LABS: PLATELET ESTIMATE NORMAL; TOTAL CELLS COUNTED 100
[2020-11-29] MEDS ORDERED: magnesium hydroxide 30ml (MOM) UD suspension PO ONE (10:10)
[2020-11-29] MEDS: dextrose 5%-1/2 normal saline 1,000 ML IV SCH (10:20)
[2020-11-29 11:00] VITALS: BP 112/56
[2020-11-29 15:00] VITALS: BP 100/60
[2020-11-29 18:00] VITALS: BP 111/52
--- NOTE | 2020-11-29 18:00 | NUR ---
Patient in room PCU 3017. I have received report from Chirag NEAL and had the opportunity to ask questions and assume patient care.
[2020-11-29 22:00] VITALS: BP 128/61
[2020-11-30] MEDS: HYDROmorph./NS 0.2 mg/ml CADD 100 ML IV SCH ×12 (01:00→23:00)
[2020-11-30 01:54] VITALS: BP 103/54
[2020-11-30] MEDS: albuterol 2.5 MG/3 ML nebule NEB SCH ×4 (02:42→19:58)
[2020-11-30] MEDS: normal saline 1000ml 1,000 ML IV SCH ×2 (03:55→19:46)
[2020-11-30 06:00] VITALS: BP 114/61
--- NOTE | 2020-11-30 06:08 | NUR ---
Problems reprioritized. Patient report given, questions answered & plan of care reviewed with Chirag NEAL.
[2020-11-30 06:17] LABS: ALANINE AMINOTRANSFERASE 39 U/L (12-78); ALBUMIN 2.3 G/DL (3.4-5.0); ALBUMIN/GLOBULIN RATIO 0.6 (1.1-1.5); ALKALINE PHOSPHATASE 79 IU/L (46-116); ANION GAP 12 (8-16); ASPARTATE AMINO TRANSFERASE 28 U/L (10-37); BILIRUBIN,TOTAL 0.4 MG/DL (0.1-1.0); BLOOD UREA NITROGEN 80 MG/DL (7-18); BUN/CREATININE RATIO 10.8 (5.4-32.0); CALCIUM 8.2 MG/DL (8.5-10.1); CHLORIDE 108 MMOL/L (99-107); CREATININE 7.39 MG/DL (0.60-1.10); GLUCOSE 113 MG/DL (70-104); PHOSPHORUS 5.5 MG/DL (2.3-4.5); POTASSIUM 4.7 MMOL/L (3.5-5.1); SODIUM 138 MMOL/L (135-145); TOTAL CARBON DIOXIDE 18.3 MMOL/L (24-32); TOTAL PROTEIN 5.9 G/DL (6.4-8.2); eGFR 7 ML/MIN
[2020-11-30] MEDS: dextrose 5%-1/2 normal saline 1,000 ML IV SCH (06:20)
[2020-11-30 06:21] LABS: BASOPHILS % (AUTO) 0.2 % (0-1); EOSINOPHILS # (AUTO) 0.2 X10'3 (0-0.9); EOSINOPHILS % (AUTO) 1.8 % (0-6); HEMATOCRIT 29.5 % (42.0-52.0); HEMOGLOBIN 9.7 g/dl (14.0-17.9); LYMPHOCYTES # (AUTO) 1.1 X10'3 (1.1-4.8); LYMPHOCYTES % (AUTO) 9.3 % (21-51); MEAN CORPUSCULAR HEMOGLOBIN 32.7 PG (27.0-31.0); MEAN CORPUSCULAR VOLUME 98.9 FL (78-98); MEAN PLATELET VOLUME 7.5 FL (7.4-10.4); MONOCYTES # (AUTO) 0.9 X10'3 (0-0.9); MONOCYTES % (AUTO) 8.2 % (2-12); NEUTROPHILS # (AUTO) 9.1 X10'3 (1.8-7.7); NEUTROPHILS % (AUTO) 80.5 % (42-75); PLATELET COUNT 152 X10'3 (140-440); RED BLOOD COUNT 2.98 X10'6 (4.70-6.10); RED CELL DISTRIBUTION WIDTH 13.3 % (11.5-14.5); WHITE BLOOD COUNT 11.3 X10'3 (4.5-11.0)
[2020-11-30] MEDS: heparin, porcine 5000 units/ml vial SQ SCH ×2 (07:36→19:47)
[2020-11-30] MEDS: tamsulosin 0.4mg capsule PO SCH (07:36)
[2020-11-30] MEDS: lactobacillus rhamnosus 10,000 MMU CELLS/CAPSULE PO SCH ×2 (07:36→19:46)
[2020-11-30] MEDS: metroNIDAZOLE-Flagyl 500mg/NS 100 ML IV SCH ×3 (07:36→23:39)
[2020-11-30] MEDS: budesonide 0.5mg/2ml UD nebule IH SCH ×2 (09:07→19:58)
--- NOTE | 2020-11-30 09:29 | NUR ---
page dr garcia: DAVID CREWS [id number]: Per telephone technician, patient converted from Wandering atrial pacemaker to 2:1 Aflutter last night at 1230AM. HR has been ranging 115-130s since then. Prior to event, he maintained in 70s-90s. - Chirag NEAL ext [phone]
[2020-11-30 09:33] LABS: PLATELET ESTIMATE NORMAL; TOTAL CELLS COUNTED 100
[2020-11-30 11:00] VITALS: BP 106/49
[2020-11-30] MEDS: ciprofloxacin lact 400MG/200ML 200 ML IV SCH ×2 (11:10→19:47)
[2020-11-30] MEDS: morphine 2 MG/ML inj. syringe IV PRN (11:28)
--- NOTE | 2020-11-30 14:23 | NUR ---
Initial: Pt admit DX sepsis r/t ruptured appendicitis, PASHA r/t ATN w/ proteinuria and CKD IV approaching HD, and COPD per MD notes. Pt s/p lap appendectomy w/ abscess drainage, extensive lysis of adhesions requiring Ileum mobilization w/ Ileus expected post-op per surgeon note. Pt passing gas w/ first BM today since admit 5 days per RN s/p PRN MoM last night. Pt PO ~75% avg carb controlled diet since advanced to solid foods 11/29 w/ PO ~25% clears/full liquids 11/28 prior. Initial wt on admit 47.5kg though most recent wt 163.1kg likely more accurate compared to pt wt hx. Pt partially meeting needs at this time given DX; RD recommends ensure high protein TIDWM for additional protein intake. MD notified. Will continue to monitor for additional protein/kcal needs post-op. IF pt sepsis resolves may benefit from renal diet addition to reduce protein/electrolyte intake given elevated phos 5.5 BUN 80, Cr 7.39, and eGRF of 7. Rec: 1. continue carb controlled diet; IF sepsis resolves consider renal diet addition to limit protein/electrolytes w/ CKD IV and eGFR 7 2. ensure high protein TIDWM; pending MD verification in EMR; IF sepsis resolves consider holding ONS pending further PO trends w/ current renal function 3. routine bowel care; consider phos binder w/ meals if MD agreeable 4. weekly wts Addendum: 11/30/20 at [address] Amended: Links added.
[2020-11-30 15:00] VITALS: BP 96/66
[2020-11-30 18:00] VITALS: BP 121/65
[2020-11-30] MEDS: lactose-reduced food (Ensure High Protein) 237ml bottle PO SCH (18:00)
[2020-11-30 22:00] VITALS: BP 112/59
[2020-12-01] VITALS (10 sets, daily range): BP systolic 91–119; BP diastolic 60–79
[2020-12-01] MEDS: HYDROmorph./NS 0.2 mg/ml CADD 100 ML IV SCH ×6 (01:00→11:00)
[2020-12-01] MEDS ORDERED: normal saline 500ml IV soln 1,000 ML IV ONE (02:45)
--- NOTE | 2020-12-01 02:45 | NUR ---
MD notified of pt's HR = 129-133. MD ordered 500 ml NS bolus then Cardizem 10 mg IV.
[2020-12-01] MEDS: albuterol 2.5 MG/3 ML nebule NEB SCH ×4 (02:52→20:41)
[2020-12-01] MEDS ORDERED: diltiazem 5mg/ml 5ml inj. IV ONE (02:55)
[2020-12-01] MEDS: dextrose 5%-1/2 normal saline 1,000 ML IV SCH ×2 (03:01→23:45)
--- NOTE | 2020-12-01 06:13 | NUR ---
Problems reprioritized. Patient report given, questions answered & plan of care reviewed with VAL Smallwood.
[2020-12-01] MEDS: normal saline 1000ml 1,000 ML IV SCH ×2 (06:35→12:24)
--- NOTE | 2020-12-01 06:45 | NUR ---
Patient in room PCU 3017B. I have received report from VAL GILL and had the opportunity to ask questions and assume patient care.
[2020-12-01 07:37] LABS: ALANINE AMINOTRANSFERASE 28 U/L (12-78); ALBUMIN 2.2 G/DL (3.4-5.0); ALBUMIN/GLOBULIN RATIO 0.6 (1.1-1.5); ALKALINE PHOSPHATASE 76 IU/L (46-116); ANION GAP 12 (8-16); ASPARTATE AMINO TRANSFERASE 14 U/L (10-37); BILIRUBIN,TOTAL 0.4 MG/DL (0.1-1.0); BLOOD UREA NITROGEN 74 MG/DL (7-18); BUN/CREATININE RATIO 10.4 (5.4-32.0); CHLORIDE 109 MMOL/L (99-107); CREATININE 7.13 MG/DL (0.60-1.10); GLUCOSE 105 MG/DL (70-104); PHOSPHORUS 5.1 MG/DL (2.3-4.5); POTASSIUM 4.8 MMOL/L (3.5-5.1); SODIUM 138 MMOL/L (135-145); TOTAL CARBON DIOXIDE 17.2 MMOL/L (24-32); eGFR 8 ML/MIN
[2020-12-01] MEDS: CADD PCA waste documentation MC PRN ×2 (07:38→11:37)
[2020-12-01] MEDS: lactose-reduced food (Ensure High Protein) 237ml bottle PO SCH ×3 (08:00→18:01)
[2020-12-01] MEDS: budesonide 0.5mg/2ml UD nebule IH SCH ×2 (09:00→20:41)
[2020-12-01] MEDS: metroNIDAZOLE-Flagyl 500mg/NS 100 ML IV SCH ×3 (09:39→23:59)
[2020-12-01] MEDS: tamsulosin 0.4mg capsule PO SCH (09:40)
[2020-12-01] MEDS: lactobacillus rhamnosus 10,000 MMU CELLS/CAPSULE PO SCH ×2 (09:40→19:33)
[2020-12-01] MEDS: heparin, porcine 5000 units/ml vial SQ SCH ×2 (09:41→19:33)
[2020-12-01] MEDS: ciprofloxacin lact 400MG/200ML 200 ML IV SCH ×2 (11:09→19:32)
[2020-12-01] MEDS: morphine 2 MG/ML inj. syringe IV PRN (11:28)
[2020-12-01] MEDS ORDERED: HYDROmorphone/PF 0.2 MG/ML SYRINGE IV PRN (11:45)
[2020-12-01] MEDS ORDERED: CIPR250T4 PO (13:40)
[2020-12-01] MEDS ORDERED: METR-159 PO (13:40)
[2020-12-01] MEDS ORDERED: amiodarone 150mg/dext, iso-os 100 ML IV ONE (16:40)
[2020-12-01] MEDS: amiodarone/D5 360MG/200ML BAG 200 ML IV SCH (17:41)
[2020-12-01] MEDS: oxyCODONE IR 5mg (immed. release) tablet PO PRN (17:51)
--- NOTE | 2020-12-01 18:14 | NUR ---
Patient in room PCU 3017. I have received report from VAL Smallwood and had the opportunity to ask questions and assume patient care.
--- NOTE | 2020-12-01 18:15 | NUR ---
Problems reprioritized. Patient report given, questions answered & plan of care reviewed with VAL JO.
--- NOTE | 2020-12-01 23:32 | NUR ---
MD Vickers notified of patients blood pressure 113/49 MAP of (61). Patient on amiodarone drip 1 mg/hr started at 1741. MD Vickers gave telephone order of dobutamine 5 mg increase to 10 maintain MAP of 65. Patient will be titrated to 0.5 mg/ hr per protocol. Will adjust accordingly and monitor heart rate.
[2020-12-02] VITALS (19 sets, daily range): BP systolic 100–150; BP diastolic 49–110
[2020-12-02] MEDS: amiodarone/D5 360MG/200ML BAG 200 ML IV SCH ×7 (00:58→23:28)
[2020-12-02] MEDS: oxyCODONE IR 5mg (immed. release) tablet PO PRN ×4 (01:14→19:51)
[2020-12-02] MEDS: albuterol 2.5 MG/3 ML nebule NEB SCH ×4 (02:30→20:08)
--- NOTE | 2020-12-02 05:23 | NUR ---
Patients blood pressure has been taken manually because automatic cuff isn't reading properly last blood pressure was 134/82 HR 114 at 0430. Amiodarone drip is infusing at 16.6 mls/ hr or 0.5 mg/min patient is still in Afib
--- NOTE | 2020-12-02 06:20 | NUR ---
Patient in room PCU 3017. I have received report from Donal NEAL and had the opportunity to ask questions and assume patient care.
--- NOTE | 2020-12-02 06:32 | NUR ---
Problems reprioritized. Patient report given, questions answered & plan of care reviewed with VAL Stallings.
[2020-12-02 08:19] LABS: ALANINE AMINOTRANSFERASE 26 U/L (12-78); ALBUMIN 2.2 G/DL (3.4-5.0); ALBUMIN/GLOBULIN RATIO 0.6 (1.1-1.5); ALKALINE PHOSPHATASE 72 IU/L (46-116); ANION GAP 15 (8-16); ASPARTATE AMINO TRANSFERASE 15 U/L (10-37); BILIRUBIN,TOTAL 0.3 MG/DL (0.1-1.0); BLOOD UREA NITROGEN 78 MG/DL (7-18); BUN/CREATININE RATIO 10.8 (5.4-32.0); CALCIUM 8.3 MG/DL (8.5-10.1); CHLORIDE 107 MMOL/L (99-107); CREATININE 7.19 MG/DL (0.60-1.10); GLUCOSE 95 MG/DL (70-104); MAGNESIUM 1.9 MG/DL (1.5-2.4); PHOSPHORUS 5.3 MG/DL (2.3-4.5); POTASSIUM 4.8 MMOL/L (3.5-5.1); SODIUM 138 MMOL/L (135-145); TOTAL CARBON DIOXIDE 16.1 MMOL/L (24-32); TOTAL PROTEIN 5.8 G/DL (6.4-8.2); eGFR 8 ML/MIN
[2020-12-02] MEDS: ciprofloxacin lact 400MG/200ML 200 ML IV SCH ×2 (08:26→19:48)
[2020-12-02] MEDS: tamsulosin 0.4mg capsule PO SCH (08:26)
[2020-12-02] MEDS: lactose-reduced food (Ensure High Protein) 237ml bottle PO SCH ×3 (08:27→18:00)
[2020-12-02] MEDS: lactobacillus rhamnosus 10,000 MMU CELLS/CAPSULE PO SCH ×2 (08:27→19:48)
[2020-12-02] MEDS: metroNIDAZOLE-Flagyl 500mg/NS 100 ML IV SCH ×3 (08:27→23:55)
[2020-12-02] MEDS: heparin, porcine 5000 units/ml vial SQ SCH ×2 (08:28→19:50)
[2020-12-02] MEDS: budesonide 0.5mg/2ml UD nebule IH SCH ×2 (09:00→20:08)
[2020-12-02] MEDS ORDERED: diatr meglu/diatrizoate 30ml oral sol.-(3 dose) bottle PO ONE (09:25)
[2020-12-02] MEDS: diatr meglu/diatrizoate 30ml oral sol.-(3 dose) bottle PO SCH ×3 (10:19→14:44)
[2020-12-02] MEDS: metoprolol tartrate 12.5mg (1/2 tablet) PO SCH ×2 (14:00→19:49)
--- NOTE | 2020-12-02 18:14 | NUR ---
Patient in room PCU 3016. I have received report from VAL Bernal and had the opportunity to ask questions and assume patient care.
[2020-12-02] MEDS: dextrose 5%-1/2 normal saline 1,000 ML IV SCH (18:20)
--- NOTE | 2020-12-02 18:44 | NUR ---
Problems reprioritized. Patient report given, questions answered & plan of care reviewed with Donal NEAL.
[2020-12-03] VITALS (8 sets, daily range): BP systolic 100–128; BP diastolic 60–111
[2020-12-03] MEDS: amiodarone/D5 360MG/200ML BAG 200 ML IV SCH (00:15)
[2020-12-03] MEDS: albuterol 2.5 MG/3 ML nebule NEB SCH ×2 (02:44→09:00)
[2020-12-03 06:00] LABS: ALANINE AMINOTRANSFERASE 19 U/L (12-78); ALBUMIN 2.2 G/DL (3.4-5.0); ALBUMIN/GLOBULIN RATIO 0.6 (1.1-1.5); ALKALINE PHOSPHATASE 66 IU/L (46-116); ANION GAP 13 (8-16); ASPARTATE AMINO TRANSFERASE 14 U/L (10-37); BILIRUBIN,TOTAL 0.3 MG/DL (0.1-1.0); BLOOD UREA NITROGEN 76 MG/DL (7-18); BUN/CREATININE RATIO 10.6 (5.4-32.0); CALCIUM 8.2 MG/DL (8.5-10.1); CHLORIDE 106 MMOL/L (99-107); CREATININE 7.18 MG/DL (0.60-1.10); GLUCOSE 101 MG/DL (70-104); MAGNESIUM 1.9 MG/DL (1.5-2.4); PHOSPHORUS 5.9 MG/DL (2.3-4.5); POTASSIUM 4.6 MMOL/L (3.5-5.1); SODIUM 135 MMOL/L (135-145); TOTAL CARBON DIOXIDE 16.5 MMOL/L (24-32); TOTAL PROTEIN 5.9 G/DL (6.4-8.2); eGFR 8 ML/MIN
--- NOTE | 2020-12-03 06:29 | NUR ---
Problems reprioritized. Patient report given, questions answered & plan of care reviewed with VAL Patterson.
--- NOTE | 2020-12-03 06:30 | NUR ---
Patient in room PCU 3017. I have received report from Donal NEAL and had the opportunity to ask questions and assume patient care.
--- NOTE | 2020-12-03 06:36 | NUR ---
Patient in room PCU 3017. I have received report from VAL Mansfield and had the opportunity to ask questions and assume patient care.
--- NOTE | 2020-12-03 06:38 | NUR ---
Patient in room PCU 3017. I have received report from VAL Kendall and had the opportunity to ask questions and assume patient care.
[2020-12-03] MEDS: metroNIDAZOLE-Flagyl 500mg/NS 100 ML IV SCH (08:14)
[2020-12-03] MEDS: tamsulosin 0.4mg capsule PO SCH (08:15)
[2020-12-03] MEDS: metoprolol tartrate 12.5mg (1/2 tablet) PO SCH (08:15)
[2020-12-03] MEDS: heparin, porcine 5000 units/ml vial SQ SCH (08:15)
[2020-12-03] MEDS: lactobacillus rhamnosus 10,000 MMU CELLS/CAPSULE PO SCH (08:15)
[2020-12-03] MEDS: lactose-reduced food (Ensure High Protein) 237ml bottle PO SCH (08:16)
[2020-12-03] MEDS: dextrose 5%-1/2 normal saline 1,000 ML IV SCH (08:19)
[2020-12-03] MEDS: budesonide 0.5mg/2ml UD nebule IH SCH (09:00)
[2020-12-03] MEDS: ciprofloxacin lact 400MG/200ML 200 ML IV SCH (10:05)
[2020-12-03] MEDS ORDERED: METO-395 PO (10:22)
[2020-12-03] MEDS ORDERED: ASPI81TA52 PO (10:22)
[2020-12-03 10:28] LABS: BASOPHILS % (AUTO) 0.3 % (0-1); EOSINOPHILS # (AUTO) 0.4 X10'3 (0-0.9); EOSINOPHILS % (AUTO) 2.7 % (0-6); HEMATOCRIT 30.6 % (42.0-52.0); HEMOGLOBIN 10.2 g/dl (14.0-17.9); LYMPHOCYTES % (AUTO) 7.6 % (21-51); MEAN CORPUSCULAR HEMOGLOBIN 32.3 PG (27.0-31.0); MEAN CORPUSCULAR HGB CONC 33.4 g/dL (33.0-36.5); MEAN CORPUSCULAR VOLUME 96.7 FL (78-98); MEAN PLATELET VOLUME 7.3 FL (7.4-10.4); MONOCYTES # (AUTO) 1.1 X10'3 (0-0.9); MONOCYTES % (AUTO) 8.2 % (2-12); NEUTROPHILS % (AUTO) 81.2 % (42-75); PLATELET COUNT 184 X10'3 (140-440); RED BLOOD COUNT 3.17 X10'6 (4.70-6.10); RED CELL DISTRIBUTION WIDTH 13.2 % (11.5-14.5); WHITE BLOOD COUNT 13.5 X10'3 (4.5-11.0)
[2020-12-03 10:51] LABS: PLATELET ESTIMATE NORMAL; TOTAL CELLS COUNTED 100
[2020-12-03 10:52] LABS: POLYCHROMASIA FEW
--- NOTE | 2020-12-03 13:55 | NUR ---
Patient safe for discharge per providers orders. Medication and discharge instructions discussed. PIV discontinued cannula intact. Telemetry discontinued. Belongings sent with patient. Patient wheeled to lobby via nursing staff. Patient left in private vehicle with family member.
== END 2020-12-03 14:01 | disposition home or self-care (01) | DRG 853 ==
LOC: ER 15:08 → ED HOLD 17:16 → PCU 3S 22:30
PROVIDERS: ADMIT Family Medicine; ATTEND Family Medicine
PROC: 0W9G4ZZ Drainage of Peritoneal Cavity, Percutaneous Endoscopic Approach (ICD-10-PCS; 2020-11-25)
PROC: 0DNW4ZZ Release Peritoneum, Percutaneous Endoscopic Approach (ICD-10-PCS; 2020-11-25)
PROC: 8E0W4CZ Robotic Assisted Procedure of Trunk Region, Percutaneous Endoscopic Approach (ICD-10-PCS; 2020-11-25)
PROC: 0DTJ4ZZ Resection of Appendix, Percutaneous Endoscopic Approach (ICD-10-PCS; principal; 2020-11-25 18:40)
PROC: 5A09357 Assistance with Respiratory Ventilation, Less than 24 Consecutive Hours, Continuous Positive Airway Pressure (ICD-10-PCS; 2020-11-26)
PROC: 5A09357 Assistance with Respiratory Ventilation, Less than 24 Consecutive Hours, Continuous Positive Airway Pressure (ICD-10-PCS; 2020-11-27)
PROC: 5A09357 Assistance with Respiratory Ventilation, Less than 24 Consecutive Hours, Continuous Positive Airway Pressure (ICD-10-PCS; 2020-11-28)
PROC: 5A09357 Assistance with Respiratory Ventilation, Less than 24 Consecutive Hours, Continuous Positive Airway Pressure (ICD-10-PCS; 2020-11-29)
PROC: 5A09357 Assistance with Respiratory Ventilation, Less than 24 Consecutive Hours, Continuous Positive Airway Pressure (ICD-10-PCS; 2020-11-30)
PROC: 5A09357 Assistance with Respiratory Ventilation, Less than 24 Consecutive Hours, Continuous Positive Airway Pressure (ICD-10-PCS; 2020-12-01)
PROC: 5A09357 Assistance with Respiratory Ventilation, Less than 24 Consecutive Hours, Continuous Positive Airway Pressure (ICD-10-PCS; 2020-12-02)
DX: A41.9 Sepsis, unspecified organism (principal); K35.33 Acute appendicitis with perforation, localized peritonitis, and gangrene, with abscess; N17.0 Acute kidney failure with tubular necrosis; I48.92 Unspecified atrial flutter; N18.4 Chronic kidney disease, stage 4 (severe); K92.1 Melena; Z68.43 Body mass index [BMI] 50.0-59.9, adult; R80.8 Other proteinuria; E66.01 Morbid (severe) obesity due to excess calories; G47.30 Sleep apnea, unspecified; R31.9 Hematuria, unspecified; I12.9 Hypertensive chronic kidney disease with stage 1 through stage 4 chronic kidney disease, or unspecified chronic kidney disease; J44.9 Chronic obstructive pulmonary disease, unspecified; K66.0 Peritoneal adhesions (postprocedural) (postinfection); N40.0 Benign prostatic hyperplasia without lower urinary tract symptoms; Z88.0 Allergy status to penicillin; Z79.899 Other long term (current) drug therapy
CPT/HCPCS: 93306; 96361; 96375; 99285; Z7506; Z7508; 36415; 71045; 74176; 80048; 80053; 81001; 82570; 82948; 83605; 83735; 84100; 84145; 84156; 84300; 85007; 85025; 85610; 85730; 86885; 86900; 86901; 87040; 87207; 93005; 94640; 94760; 97116; 97162; 97530; A4215; A4618; C9113; C9399; G0378; J0696; J0744; J1100; J1170; J1644; J2001; J2250; J2270; J2405; J2704; J3010; J3480; J3490; J7030; J7040; J7626; P9045; Q9963

== ENCOUNTER 2021-01-15 06:00 | Day surgery (SDC) | payer BC, MEDICARE ==
[~2021-01-15] VITALS: Ht 180.3 cm; Wt 150.4 kg
[~2021-01-15 06:00] MED LIST changes: -ALBU17AE26 PO; +ALBU8HFA IH; -BUDE10.2 PO; +BUDE10.26 PO; +ERGO500054 PO; +FLO0.4C PO; -LEVO250T58 PO; +METO-395 PO
[2021-01-15] MEDS ORDERED: normal saline 1000ml 1,000 ML IV SCH (06:20)
[2021-01-15] MEDS ORDERED: LOSA1TAB36 PO (06:30)
[2021-01-15 06:50] VITALS: BP 142/72
[2021-01-15 07:25] LABS: BASOPHILS % (AUTO) 0.5 % (0-1); EOSINOPHILS # (AUTO) 0.2 X10'3 (0-0.9); EOSINOPHILS % (AUTO) 3.3 % (0-6); HEMATOCRIT 24.8 % (42.0-52.0); HEMOGLOBIN 8.3 g/dl (14.0-17.9); LYMPHOCYTES # (AUTO) 1.2 X10'3 (1.1-4.8); LYMPHOCYTES % (AUTO) 15.7 % (21-51); MEAN CORPUSCULAR HGB CONC 33.4 g/dL (33.0-36.5); MEAN CORPUSCULAR VOLUME 98.6 FL (78-98); MEAN PLATELET VOLUME 6.6 FL (7.4-10.4); MONOCYTES # (AUTO) 0.6 X10'3 (0-0.9); MONOCYTES % (AUTO) 8.3 % (2-12); NEUTROPHILS # (AUTO) 5.3 X10'3 (1.8-7.7); NEUTROPHILS % (AUTO) 72.2 % (42-75); PLATELET COUNT 156 X10'3 (140-440); RED BLOOD COUNT 2.51 X10'6 (4.70-6.10); RED CELL DISTRIBUTION WIDTH 14.2 % (11.5-14.5); WHITE BLOOD COUNT 7.4 X10'3 (4.5-11.0)
[2021-01-15] MEDS ORDERED: midazolam 1 mg/ML 2ml injection ONE (08:27)
[2021-01-15] MEDS ORDERED: heparin 1,000unit/ml 10ml vial 10 ML ONE (08:27)
[2021-01-15] MEDS ORDERED: LIDOcaine 1%/PF 5ML 10 MG/ML VIAL ONE (08:27)
[2021-01-15] MEDS ORDERED: fentaNYL/PF 50MCG/1 ML 2ML syringe ONE (08:28)
[2021-01-15 10:05] VITALS: BP 130/70
[2021-01-15 10:20] VITALS: BP 137/67
[2021-01-15 10:35] VITALS: BP 122/57
[2021-01-15 10:50] VITALS: BP 132/89
[2021-01-15 11:15] VITALS: BP 140/75
== END 2021-01-15 11:15 | disposition home or self-care (01) ==
LOC: SSTAY O 06:00
PROVIDERS: ATTEND Radiology Diagnostic Radiology
DX: I12.0 Hypertensive chronic kidney disease with stage 5 chronic kidney disease or end stage renal disease (principal); N18.5 Chronic kidney disease, stage 5; D63.1 Anemia in chronic kidney disease; G47.33 Obstructive sleep apnea (adult) (pediatric); N25.81 Secondary hyperparathyroidism of renal origin; E66.01 Morbid (severe) obesity due to excess calories; Z68.42 Body mass index [BMI] 45.0-49.9, adult; J44.9 Chronic obstructive pulmonary disease, unspecified; Z98.890 Other specified postprocedural states; Z88.0 Allergy status to penicillin; Z79.899 Other long term (current) drug therapy; Z96.652 Presence of left artificial knee joint; Z87.891 Personal history of nicotine dependence
CPT/HCPCS: 36415; 36558; 76937; 77001; 85025; 93005; C1750; C1769; C1894; J1644; J2250; J3010; 99152; 99153; A9270

== ENCOUNTER 2021-02-20 22:52 | Inpatient (IN) | payer BC, MEDICARE ==
[~2021-02-20] VITALS: Ht 180.3 cm; Wt 145.4 kg
[~2021-02-20 22:52] MED LIST changes: +LOSA1TAB36 PO; -METO-395 PO
[2021-02-20 23:36] LABS: BASOPHILS % (AUTO) 0.4 % (0-1); EOSINOPHILS # (AUTO) 0.1 X10'3 (0-0.9); EOSINOPHILS % (AUTO) 0.8 % (0-6); HEMATOCRIT 30.8 % (42.0-52.0); HEMOGLOBIN 10.1 g/dl (14.0-17.9); LYMPHOCYTES # (AUTO) 1.3 X10'3 (1.1-4.8); LYMPHOCYTES % (AUTO) 12.4 % (21-51); MEAN CORPUSCULAR HEMOGLOBIN 33.3 PG (27.0-31.0); MEAN CORPUSCULAR HGB CONC 32.9 g/dL (33.0-36.5); MEAN CORPUSCULAR VOLUME 101.4 FL (78-98); MEAN PLATELET VOLUME 6.8 FL (7.4-10.4); MONOCYTES # (AUTO) 0.9 X10'3 (0-0.9); MONOCYTES % (AUTO) 8.1 % (2-12); NEUTROPHILS # (AUTO) 8.5 X10'3 (1.8-7.7); NEUTROPHILS % (AUTO) 78.3 % (42-75); PLATELET COUNT 208 X10'3 (140-440); RED BLOOD COUNT 3.04 X10'6 (4.70-6.10); WHITE BLOOD COUNT 10.8 X10'3 (4.5-11.0)
[2021-02-20 23:52] LABS: D-DIMER 14.39 MG/L FEU (0-0.50)
[2021-02-20 23:56] LABS: ALANINE AMINOTRANSFERASE 12 U/L (12-78); ALBUMIN/GLOBULIN RATIO 0.8 (1.1-1.5); ALKALINE PHOSPHATASE 63 IU/L (46-116); ANION GAP 13 (8-16); ASPARTATE AMINO TRANSFERASE 7 U/L (10-37); BILIRUBIN,TOTAL 0.5 MG/DL (0.1-1.0); BLOOD UREA NITROGEN 35 MG/DL (7-18); BUN/CREATININE RATIO 5.3 (5.4-32.0); CALCIUM 8.4 MG/DL (8.5-10.1); CHLORIDE 103 MMOL/L (99-107); CREATININE 6.66 MG/DL (0.60-1.10); GLUCOSE 124 MG/DL (70-104); SODIUM 142 MMOL/L (135-145); TOTAL CARBON DIOXIDE 26.4 MMOL/L (24-32); TROPONIN I < 0.04 NG/ML (0.0-0.05); eGFR 8 ML/MIN
--- NOTE | 2021-02-21 00:17 | NUR ---
Patient is waiting in his white je- he can be reached at [phone].
[2021-02-21] MEDS ORDERED: potassium Cl 20 mEq SR tablet PO STA (00:32)
[2021-02-21] MEDS ORDERED: iohexol 350MG/ML 100ml bottle IV ONE (00:44)
[2021-02-21] MEDS ORDERED: heparin 10,000 units/1 ML INJ IV PRN ×2 (02:05→02:20)
[2021-02-21] MEDS ORDERED: heparin 10,000 units/1 ML INJ IV ONE ×2 (02:05→02:10)
[2021-02-21] MEDS ORDERED: dexamethasone sod phosphate 10mg/ml inj IV STA (02:07)
[2021-02-21] MEDS ORDERED: DOXYCYCLINE 100MG CAPSULE PO STA (02:07)
[2021-02-21] MEDS ORDERED: ipratropium/albuterol 3ml nebule NEB ONE (02:15)
[2021-02-21] MEDS ORDERED: potassium Cl 40MEQ/1/2NS 520ml 520 ML IV PRN ×2 (02:20)
[2021-02-21] MEDS ORDERED: magnesium Cl slow-release 64mg tablet PO PRN (02:20)
[2021-02-21] MEDS ORDERED: potassium Cl 20 mEq SR tablet PO PRN ×2 (02:20)
[2021-02-21] MEDS ORDERED: heparin 25,000 UNIT/250ml bag 250 ML IV SCH (02:20)
[2021-02-21] MEDS ORDERED: magnesium 4gm in 100ml NS 100 ML IV PRN (02:20)
[2021-02-21] MEDS ORDERED: magnesium 2GM in 50ml NS 50 ML IV PRN (02:20)
[2021-02-21] MEDS ORDERED: ondansetron/PF 4mg/2ml inj IV PRN (02:20)
[2021-02-21] MEDS ORDERED: acetaminophen 325mg tablet PO PRN ×2 (02:20)
[2021-02-21 02:27] LABS: PARTIAL THROMBOPLASTIN TIME 27 SECONDS (22-32)
[2021-02-21] MEDS: heparin 25,000 UNIT/250ml bag 250 ML IV SCH ×3 (02:56→20:26)
[2021-02-21] MEDS: normal saline 1000ml 1,000 ML IV SCH (02:59)
[2021-02-21 03:10] LABS: C-REACTIVE PROTEIN 3.29 MG/DL (0.0-0.5); FERRITIN 584 NG/ML (26-388); LACTATE DEHYDROGENASE 138 U/L (85-227)
[2021-02-21] MEDS ORDERED: levoFLOXACIN-Levaquin 500mg/D5 100 ML IV SCH (08:00)
[2021-02-21] MEDS: K and/or MAG REPLACEMENT MC SCH ×2 (08:00→20:00)
[2021-02-21 11:00] VITALS: BP 131/57
[2021-02-21] MEDS ORDERED: PHO667C PO (11:37)
[2021-02-21] MEDS ORDERED: CALC667T2 PO (12:27)
--- NOTE | 2021-02-21 12:28 | NUR ---
SECOND PHONE CALL TO LAB FOR DVT PTT RESULTS.
--- NOTE | 2021-02-21 13:35 | NUR ---
Took down patient's wallet and keys to the lobby for the son to roll picker. Asked patient beforehand if that was okay, and the patient said that it was. Those belongings are being sent home to the son.
--- NOTE | 2021-02-21 14:39 | NUR ---
PT'S DVT PTT - 99. PT'S HEPARIN DRIP ADJUSTED PER PROTOCOL TO 1,700 UNITS/HR. PHARMACY
--- NOTE | 2021-02-21 14:50 | NUR ---
PAGE SENT PAGER ID: [phone] MESSAGE: [id number], DAVID CREWS, ASKING ABOUT HD. HAS DR. AMIN BEEN CONTACTED? THANK YOU. KOFI
[2021-02-21 15:00] VITALS: BP 131/57
--- NOTE | 2021-02-21 17:15 | NUR ---
PAGE SENT PAGER ID: [phone] MESSAGE: [id number], DAVID CREWS, AN HD PATIENT, SHOULD HE HAVE SEVELAMER WITH MEALS? THANK YOU. KOFI Bauer [phone]
[2021-02-21 18:00] VITALS: BP 112/39
--- NOTE | 2021-02-21 18:00 | NUR ---
Patient in room PCU 3025. I have received report from Albert and had the opportunity to ask questions and assume patient care.
[2021-02-21 18:39] VITALS: BP 101/52
--- NOTE | 2021-02-21 18:43 | NUR ---
Problems reprioritized. Patient report given, questions answered & plan of care reviewed with VAL MAHONEY.
[2021-02-21] MEDS: lactobacillus rhamnosus 10,000 MMU CELLS/CAPSULE PO SCH (20:24)
[2021-02-21] MEDS ORDERED: heparin 1,000 units/ml 10ml inj IV ONE (20:50)
[2021-02-21] MEDS ORDERED: normal saline 1000ml 250 ML IV PRN (20:50)
[2021-02-21] MEDS ORDERED: heparin 1,000 units/ml 10ml inj HE ONE (20:55)
[2021-02-21] MEDS ORDERED: temazepam 15mg capsule PO PRN (21:00)
[2021-02-21 22:00] VITALS: BP 104/40
[2021-02-22 02:00] VITALS: BP 111/51
[2021-02-22 02:51] LABS: BASOPHILS % (AUTO) 0 % (0-1); EOSINOPHILS % (AUTO) 0 % (0-6); HEMATOCRIT 26.9 % (42.0-52.0); HEMOGLOBIN 8.8 g/dl (14.0-17.9); LYMPHOCYTES # (AUTO) 1.1 X10'3 (1.1-4.8); LYMPHOCYTES % (AUTO) 6.1 % (21-51); MEAN CORPUSCULAR HEMOGLOBIN 32.8 PG (27.0-31.0); MEAN CORPUSCULAR HGB CONC 32.8 g/dL (33.0-36.5); MEAN PLATELET VOLUME 6.9 FL (7.4-10.4); MONOCYTES # (AUTO) 1.2 X10'3 (0-0.9); MONOCYTES % (AUTO) 6.9 % (2-12); NEUTROPHILS # (AUTO) 15.2 X10'3 (1.8-7.7); PLATELET COUNT 204 X10'3 (140-440); RED BLOOD COUNT 2.69 X10'6 (4.70-6.10); RED CELL DISTRIBUTION WIDTH 14.6 % (11.5-14.5); WHITE BLOOD COUNT 17.5 X10'3 (4.5-11.0)
[2021-02-22 03:05] LABS: ALANINE AMINOTRANSFERASE 13 U/L (12-78); ALBUMIN 2.5 G/DL (3.4-5.0); ALBUMIN/GLOBULIN RATIO 0.6 (1.1-1.5); ALKALINE PHOSPHATASE 62 IU/L (46-116); ANION GAP 13 (8-16); ASPARTATE AMINO TRANSFERASE 4 U/L (10-37); BILIRUBIN,TOTAL 0.3 MG/DL (0.1-1.0); BLOOD UREA NITROGEN 44 MG/DL (7-18); BUN/CREATININE RATIO 6.5 (5.4-32.0); CALCIUM 8.3 MG/DL (8.5-10.1); CHLORIDE 103 MMOL/L (99-107); CREATININE 6.73 MG/DL (0.60-1.10); GLUCOSE 112 MG/DL (70-104); MAGNESIUM 2.2 MG/DL (1.5-2.4); POTASSIUM 3.8 MMOL/L (3.5-5.1); SODIUM 139 MMOL/L (135-145); TOTAL CARBON DIOXIDE 22.8 MMOL/L (24-32); TOTAL PROTEIN 6.4 G/DL (6.4-8.2); eGFR 8 ML/MIN
[2021-02-22] MEDS: heparin 25,000 UNIT/250ml bag 250 ML IV SCH ×3 (03:23→21:09)
[2021-02-22 06:00] VITALS: BP 101/46
--- NOTE | 2021-02-22 06:14 | NUR ---
Problems reprioritized. Patient report given, questions answered & plan of care reviewed with Asa.
--- NOTE | 2021-02-22 07:53 | NUR ---
Patient in room PCU 3025. I have received report from isaac NEAL and had the opportunity to ask questions and assume patient care.
--- NOTE | 2021-02-22 07:55 | NUR ---
2 calls to alejandrina DUNBAR nurse, supercharge repair supervisor received call back now
[2021-02-22] MEDS: lactobacillus rhamnosus 10,000 MMU CELLS/CAPSULE PO SCH ×2 (07:56→21:03)
[2021-02-22] MEDS: K and/or MAG REPLACEMENT MC SCH ×2 (08:00→20:00)
[2021-02-22] MEDS ORDERED: heparin 1,000 units/ml 10ml inj IV ONE (08:45)
[2021-02-22] MEDS ORDERED: heparin 1,000 units/ml 10ml inj HE ONE ×2 (08:50)
[2021-02-22 11:00] VITALS: BP 104/52
--- NOTE | 2021-02-22 11:25 | NUR ---
MD ANG ROUNDED ON PT, SAYS SHE IS AWARE OF WBC CHANGE FROM 10.8 TO 17.5 AN MAY BE FROM PE. NO ORDERS AT THIS TIME. WILL CONTINUE TO ASSESS PT FOR S&S OF FEVER.
[2021-02-22] MEDS: levoFLOXACIN-Levaquin 250mg/D5 50 ML IV SCH (13:53)
[2021-02-22 15:00] VITALS: BP 107/56
[2021-02-22] MEDS ORDERED: lactulose 20gm/30ml cup PO PRN (16:05)
[2021-02-22 19:00] VITALS: BP 111/50
--- NOTE | 2021-02-22 19:00 | NUR ---
Assessment/ pt rounding. IV pump to Pts heparin gtt is off unsure how long. New hep ptt lab ordered for this time. Addendum: 02/22/21 at 1919 by Ginna Rain RN Amended: Links added.
--- NOTE | 2021-02-22 19:20 | NUR ---
Dr. Gold made aware that Hep gtt was off when noc nurse got on shift. was made aware that there wasn't a discontinue order it was found off and that nurse ordered the Hep ptt lab. Orders to follow protocol as previously ordered. Addendum: 02/22/21 at 1944 by Ginna Rain RN Amended: Links added.
--- NOTE | 2021-02-22 21:00 | NUR ---
Lab result for Hep ptt reviewed as 42. Hep bolus and Hep gtt started with pharmacy consulting, following Hep protocol. Addendum: 02/22/21 at 2218 by Ginna Rain RN Amended: Links added.
[2021-02-22] MEDS: docusate sod 100mg capsule PO SCH (21:02)
[2021-02-22] MEDS: normal saline 1000ml 1,000 ML IV SCH ×2 (21:12→21:13)
[2021-02-22 22:00] VITALS: BP 117/55
--- NOTE | 2021-02-22 23:00 | NUR ---
Hep PTT retimed for 030, d/t last adjusted at 2100. 6hr lab check per protocol Addendum: 02/23/21 at 0208 by Ginna Rain RN Amended: Links added.
[2021-02-23 00:39] LABS: CLARITY,URINE CLEAR (Clear); COLOR,URINE YELLOW (Yellow); GLUCOSE, URINE NEGATIVE (Neg); KETONES,URINE NEGATIVE (Neg); LEUKOCYTE ESTERASE ,URINE NEGATIVE (Neg); NITRITES, URINE NEGATIVE (Neg); OCCULT BLOOD,URINE MODERATE (Neg); PH,URINE 7.5 (4.8-8.0); PROTEIN,URINE 100 mg/dl (Neg); UROBILINOGEN,URINE 0.2 E.U/dL (0.2-1.0)
[2021-02-23 00:46] LABS: UA COLLECTION TYPE FOLEY CATH
[2021-02-23 00:47] LABS: BACTERIA,URINE NONE SEEN /HPF (Neg); SQUAMOUS EPITHELIAL CELL,UR NONE SEEN /LPF (FEW); WBC,URINE 0-4 /HPF (0-4)
[2021-02-23 02:00] VITALS: BP 117/58
[2021-02-23 02:58] LABS: BASOPHILS # (AUTO) 0.1 X10'3 (0-0.2); BASOPHILS % (AUTO) 0.5 % (0-1); EOSINOPHILS # (AUTO) 0.2 X10'3 (0-0.9); EOSINOPHILS % (AUTO) 1.7 % (0-6); HEMOGLOBIN 9.4 g/dl (14.0-17.9); LYMPHOCYTES # (AUTO) 2.5 X10'3 (1.1-4.8); LYMPHOCYTES % (AUTO) 24.2 % (21-51); MEAN CORPUSCULAR HEMOGLOBIN 33.2 PG (27.0-31.0); MEAN CORPUSCULAR HGB CONC 33.5 g/dL (33.0-36.5); MEAN CORPUSCULAR VOLUME 98.8 FL (78-98); MEAN PLATELET VOLUME 6.8 FL (7.4-10.4); MONOCYTES # (AUTO) 0.6 X10'3 (0-0.9); MONOCYTES % (AUTO) 5.8 % (2-12); NEUTROPHILS # (AUTO) 6.9 X10'3 (1.8-7.7); NEUTROPHILS % (AUTO) 67.8 % (42-75); PLATELET COUNT 227 X10'3 (140-440); RED BLOOD COUNT 2.83 X10'6 (4.70-6.10); RED CELL DISTRIBUTION WIDTH 14.7 % (11.5-14.5); WHITE BLOOD COUNT 10.2 X10'3 (4.5-11.0)
[2021-02-23 03:15] LABS: ALANINE AMINOTRANSFERASE 16 U/L (12-78); ALBUMIN 2.5 G/DL (3.4-5.0); ALBUMIN/GLOBULIN RATIO 0.6 (1.1-1.5); ALKALINE PHOSPHATASE 63 IU/L (46-116); ANION GAP 7 (8-16); ASPARTATE AMINO TRANSFERASE 12 U/L (10-37); BILIRUBIN,TOTAL 0.3 MG/DL (0.1-1.0); BLOOD UREA NITROGEN 32 MG/DL (7-18); BUN/CREATININE RATIO 6.3 (5.4-32.0); CALCIUM 8.3 MG/DL (8.5-10.1); CHLORIDE 105 MMOL/L (99-107); CREATININE 5.08 MG/DL (0.60-1.10); GLUCOSE 99 MG/DL (70-104); POTASSIUM 4.1 MMOL/L (3.5-5.1); SODIUM 140 MMOL/L (135-145); TOTAL CARBON DIOXIDE 27.8 MMOL/L (24-32); TOTAL PROTEIN 6.4 G/DL (6.4-8.2); eGFR 11 ML/MIN
[2021-02-23 06:00] VITALS: BP 103/50
--- NOTE | 2021-02-23 06:14 | NUR ---
Patient in room PCU 3025. I have received report from [employer] and had the opportunity to ask questions and assume patient care.
[2021-02-23] MEDS: K and/or MAG REPLACEMENT MC SCH ×2 (08:00→20:00)
[2021-02-23] MEDS: docusate sod 100mg capsule PO SCH ×2 (08:08→21:08)
[2021-02-23] MEDS: lactobacillus rhamnosus 10,000 MMU CELLS/CAPSULE PO SCH ×2 (08:08→21:08)
[2021-02-23] MEDS: levoFLOXACIN-Levaquin 250mg/D5 50 ML IV SCH (08:09)
[2021-02-23] MEDS: heparin 25,000 UNIT/250ml bag 250 ML IV SCH (10:11)
[2021-02-23 11:00] VITALS: BP 125/60
--- NOTE | 2021-02-23 11:00 | NUR ---
Dialysis nurse arrived at bedside.
[2021-02-23] MEDS ORDERED: normal saline 1000ml 250 ML IV PRN (11:10)
[2021-02-23] MEDS ORDERED: normal saline 1000ml 100 ML IV PRN (11:10)
[2021-02-23] MEDS ORDERED: EPOETIN ALFA-EPBX 20,000 UNIT/ML 1 ML MDV IV ONE (11:10)
[2021-02-23] MEDS ORDERED: heparin 1,000 units/ml 10ml inj HE ONE ×2 (11:15)
[2021-02-23] MEDS ORDERED: lactulose 20gm/30ml cup PO ONE (12:45)
--- NOTE | 2021-02-23 13:12 | NUR ---
PAGER ID: [phone] MESSAGE: RE: [facility] Rm 25A [place]. Pt is on NS @50. He is drinking PO on his own and getting regular dialysis. Do you still want the IVF running?
[2021-02-23 15:00] VITALS: BP 119/63
--- NOTE | 2021-02-23 16:29 | NUR ---
Lab called to follow up on Q6h PTT due @ 0905. Waiter And Cashier is coming now to draw.
--- NOTE | 2021-02-23 18:33 | NUR ---
Problems reprioritized. Patient report given, questions answered & plan of care reviewed with Ginna NEAL.
[2021-02-23 19:00] VITALS: BP 119/61
[2021-02-23] MEDS: apixaban 5mg tablet PO SCH (21:08)
[2021-02-23 22:00] VITALS: BP 102/56
[2021-02-24 02:00] VITALS: BP 122/56
[2021-02-24 06:00] VITALS: BP 106/59
--- NOTE | 2021-02-24 06:06 | NUR ---
Problems reprioritized. Patient report given, questions answered & plan of care reviewed with AM shift. Addendum: 02/24/21 at 0607 by Ginna Rain RN Amended: Links added.
--- NOTE | 2021-02-24 06:11 | NUR ---
Patient in room PCU 3025. I have received report from shiftman RN and had the opportunity to ask questions and assume patient care.
[2021-02-24 07:04] LABS: BASOPHILS % (AUTO) 0.5 % (0-1); EOSINOPHILS # (AUTO) 0.3 X10'3 (0-0.9); EOSINOPHILS % (AUTO) 2.7 % (0-6); HEMATOCRIT 30.1 % (42.0-52.0); HEMOGLOBIN 10.3 g/dl (14.0-17.9); LYMPHOCYTES # (AUTO) 1.9 X10'3 (1.1-4.8); LYMPHOCYTES % (AUTO) 19.5 % (21-51); MEAN CORPUSCULAR HEMOGLOBIN 33.6 PG (27.0-31.0); MEAN CORPUSCULAR HGB CONC 34.2 g/dL (33.0-36.5); MEAN CORPUSCULAR VOLUME 98.1 FL (78-98); MEAN PLATELET VOLUME 6.9 FL (7.4-10.4); MONOCYTES # (AUTO) 0.7 X10'3 (0-0.9); MONOCYTES % (AUTO) 7.1 % (2-12); NEUTROPHILS % (AUTO) 70.2 % (42-75); PLATELET COUNT 235 X10'3 (140-440); RED BLOOD COUNT 3.07 X10'6 (4.70-6.10); RED CELL DISTRIBUTION WIDTH 14.5 % (11.5-14.5)
[2021-02-24 07:36] LABS: ALANINE AMINOTRANSFERASE 12 U/L (12-78); ALBUMIN 2.6 G/DL (3.4-5.0); ALBUMIN/GLOBULIN RATIO 0.7 (1.1-1.5); ALKALINE PHOSPHATASE 67 IU/L (46-116); ANION GAP 9 (8-16); ASPARTATE AMINO TRANSFERASE 9 U/L (10-37); BILIRUBIN,TOTAL 0.3 MG/DL (0.1-1.0); BLOOD UREA NITROGEN 24 MG/DL (7-18); BUN/CREATININE RATIO 5.9 (5.4-32.0); CALCIUM 8.1 MG/DL (8.5-10.1); CHLORIDE 104 MMOL/L (99-107); CREATININE 4.06 MG/DL (0.60-1.10); GLUCOSE 90 MG/DL (70-104); POTASSIUM 3.8 MMOL/L (3.5-5.1); SODIUM 140 MMOL/L (135-145); TOTAL CARBON DIOXIDE 26.8 MMOL/L (24-32); TOTAL PROTEIN 6.5 G/DL (6.4-8.2); eGFR 15 ML/MIN
[2021-02-24] MEDS: K and/or MAG REPLACEMENT MC SCH (08:00)
[2021-02-24] MEDS: docusate sod 100mg capsule PO SCH (08:10)
[2021-02-24] MEDS: apixaban 5mg tablet PO SCH (08:10)
[2021-02-24] MEDS: levoFLOXACIN-Levaquin 250mg/D5 50 ML IV SCH (08:11)
[2021-02-24] MEDS: lactobacillus rhamnosus 10,000 MMU CELLS/CAPSULE PO SCH (08:11)
[2021-02-24] MEDS ORDERED: APIX5TAB3 PO (08:32)
[2021-02-24 11:00] VITALS: BP 106/46
--- NOTE | 2021-02-24 11:57 | NUR ---
Pt d/c home. Instructions understood and signed. ID and IV band removed. Pt son is picking him up. tx by wheelchair to front lobby into personal vehicle w/o incident. VSS.
[2021-02-25 16:23] LABS: HBSAG SCREEN Negative (Negative)
[2021-03-01] MEDS ORDERED: apixaban 5mg tablet PO SCH (08:00)
== END 2021-02-24 11:57 | disposition home or self-care (01) | DRG 175 ==
LOC: ER 22:54 → ED HOLD 02-21 02:23 → PCU 3S 02-21 07:55
PROVIDERS: ADMIT Internal Medicine; ATTEND Internal Medicine
PROC: 5A09357 Assistance with Respiratory Ventilation, Less than 24 Consecutive Hours, Continuous Positive Airway Pressure (ICD-10-PCS; principal; 2021-02-21)
PROC: B32T1ZZ Computerized Tomography (CT Scan) of Left Pulmonary Artery using Low Osmolar Contrast (ICD-10-PCS; 2021-02-21)
PROC: B3201ZZ Computerized Tomography (CT Scan) of Thoracic Aorta using Low Osmolar Contrast (ICD-10-PCS; 2021-02-21)
PROC: B32S1ZZ Computerized Tomography (CT Scan) of Right Pulmonary Artery using Low Osmolar Contrast (ICD-10-PCS; 2021-02-21)
PROC: 5A09357 Assistance with Respiratory Ventilation, Less than 24 Consecutive Hours, Continuous Positive Airway Pressure (ICD-10-PCS; 2021-02-22)
PROC: 5A09357 Assistance with Respiratory Ventilation, Less than 24 Consecutive Hours, Continuous Positive Airway Pressure (ICD-10-PCS; 2021-02-23)
PROC: 5A1D70Z Performance of Urinary Filtration, Intermittent, Less than 6 Hours Per Day (ICD-10-PCS; 2021-02-23)
DX: I26.99 Other pulmonary embolism without acute cor pulmonale (principal); N18.6 End stage renal disease; J44.0 Chronic obstructive pulmonary disease with (acute) lower respiratory infection; J44.1 Chronic obstructive pulmonary disease with (acute) exacerbation; Z68.41 Body mass index [BMI] 40.0-44.9, adult; E66.9 Obesity, unspecified; D72.829 Elevated white blood cell count, unspecified; K59.00 Constipation, unspecified; D64.9 Anemia, unspecified; E87.6 Hypokalemia; G47.30 Sleep apnea, unspecified; J20.9 Acute bronchitis, unspecified; K80.20 Calculus of gallbladder without cholecystitis without obstruction; Z20.822 Contact with and (suspected) exposure to COVID-19; Z87.01 Personal history of pneumonia (recurrent); Z99.2 Dependence on renal dialysis; Z88.0 Allergy status to penicillin
CPT/HCPCS: 36415; 71045; 71275; 80053; 81001; 82728; 83605; 83615; 83735; 83880; 84145; 84484; 85025; 85379; 85384; 85610; 85730; 86140; 87040; 87081; 87340; 87635; 93005; 93306; 93970; 94640; 94760; 97161; 97530; 99285; C9803; G0257; G0378; J1100; J1644; J1956; J7030; Q4081; Q9967